=== PATIENT | male | born 1965 | race Caucasian/White ===

== ENCOUNTER → 2016-07-05 | Outpatient (CLI) | payer OTHER ==
[~2016-07-05] MED LIST: CATHETER FLUSH 10 ML SYR IV PRN; DOXY100C2 PO; HYDR-3812 PO; IBUP-2055 PO; IOHEXOL 350 MG/ML 100 ML (OMNIPAQUE 350) VIAL IV ONE; MELA5CAP PO; NS 100 ML (IVPB) BAG IV ONE; OMEP40CA36 PO; PROM50SU11 RC; PROM50TA3 PO
--- NOTE | 2016-07-05 16:07 | Diagnostic Imaging Report ---
PROCEDURE: CT chest, abdomen, and pelvis with contrast. TECHNIQUE: Multiple contiguous axial images were obtained through the chest, abdomen, and pelvis after the administration of intravenous contrast. INDICATION: Lymphadenopathy. CONTRAST: 100 mL of Omnipaque 350 was administered intravenously. COMPARISON: No prior studies are available for comparison. FINDINGS: CT CHEST: There are large bilateral axillary lymph node masses up to 3.4 x 2.5 x 4.9 cm. The largest left axillary lymph node is 2 cm in short axis. There are also mediastinal enlarged lymph nodes up to 1.8 cm in the right paratracheal station and 2.3 cm in the infracarinal station. Mild hilar lymphadenopathy is also present. There are bilateral supraclavicular lymph nodes demonstrating mild enlargement also seen. An extrapulmonary 1.4 cm enlarged node is also noted. The heart size is normal in caliber. The thoracic aorta is normal in caliber. No pericardial or pleural effusion. There is suggestion of dependent atelectasis in the lungs with no suspicious nodule or mass. The osseous structures appear grossly unremarkable. There is also a 1 cm subcutaneous nodule along the lower lateral right chest wall at the level of the dome of the diaphragm, presumably also a pathologic lymph node. CT ABDOMEN AND PELVIS: There is mild to moderate splenomegaly measuring 14.8 x 10.3 x 12.7 cm. Multiple enlarged periaortic and retrocaval lymph nodes up to 1.6 cm in short axis are seen. There is also mild mesenteric lymphadenopathy involving numerous nodes up to 1.5 cm in short axis. The liver, gallbladder, pancreas, and adrenal glands appear unremarkable. The kidneys have symmetric enhancement and contrast excretion. There is no hydronephrosis or focal lesion. The urinary bladder appears unremarkable. In the pelvis, bilateral common iliac minimally prominent subcentimeter lymph nodes are seen. There are bilateral external iliac enlarged lymph nodes measuring 1.5 cm in short axis on the left side and 0.9 cm in short axis on the right side. There are enlarged lymph nodes in the inguinal region measuring up to 1.6 cm on the right and up to 2.2 cm on the left. The osseous structures demonstrate mild degenerative changes in the sacroiliac joints. IMPRESSION: CT CHEST: 1. There is lymphadenopathy in both axilla, mediastinum, aime, and visualized portions of the neck. 2. Subcutaneous 1 cm nodule in the lower right lateral chest wall. CT ABDOMEN AND PELVIS: 1. Periaortic, mesenteric, iliac, and inguinal lymphadenopathy. 2. Splenomegaly. 3. The findings are concerning for lymphoma or other lymphoproliferative disease. Report given to nurse (Akahs) at 4:00 p.m. 07/05/2016/cb Dictated by: Dictated on workstation # [id number]
== END ==
LOC: RAD 13:48
PROVIDERS: ATTEND Nurse Practitioner Family
DX: R59.1 Generalized enlarged lymph nodes (principal); R10.84 Generalized abdominal pain; R11.14 Bilious vomiting; R53.83 Other fatigue; R21 Rash and other nonspecific skin eruption
CPT/HCPCS: 71260; 74177

== ENCOUNTER 2016-07-13 13:39 | Outpatient (RCR) | payer MEDICAID, OTHER ==
[2016-07-13 14:12] LABS: BASOPHILS # (AUTO) 0.1 10^3/uL (0.0-0.1); BASOPHILS % (AUTO) 1 % (0-10); EOSINOPHILS # (AUTO) 0.8 10^3/uL (0.0-0.3); EOSINOPHILS % (AUTO) 8 % (0-10); LYMPHOCYTES # (AUTO) 1.2 X 10^3 (1.0-4.0); LYMPHOCYTES % (AUTO) 12 % (12-44); MEAN CORPUSCULAR HEMOGLOBIN 27 PG (25-34); MEAN CORPUSCULAR HGB CONC 33 G/DL (32-36); MEAN CORPUSCULAR VOLUME 80 FL (80-99); MONOCYTES # (AUTO) 1.3 X 10^3 (0.0-1.0); MONOCYTES % (AUTO) 13 % (0-12); NEUTROPHILS # (AUTO) 6.5 X 10^3 (1.8-7.8); NEUTROPHILS % (AUTO) 66 % (42-75); PLATELET COUNT 250 10^3/uL (130-400); RED BLOOD COUNT 5.11 10^6/uL (4.35-5.85); RED CELL DISTRIBUTION WIDTH 13.8 % (10.0-14.5); WHITE BLOOD COUNT 9.8 10^3/uL (4.3-11.0)
[2016-07-13 14:18] LABS: PEP REPORT SEE PATH REPORT
[2016-07-13 14:42] LABS: ALANINE AMINOTRANSFERASE 28 U/L (0-55); ALBUMIN 3.4 G/DL (3.2-4.5); ANION GAP 9 MMOL/L (5-14); ASPARTATE AMINO TRANSFERASE 19 U/L (5-34); BLOOD UREA NITROGEN 12 MG/DL (7-18); BUN/CREATININE RATIO 14; CALCIUM 8.4 MG/DL (8.5-10.1); CARBON DIOXIDE 28 MMOL/L (21-32); CHLORIDE 101 MMOL/L (98-107); CREATININE SERUM 0.87 MG/DL (0.60-1.30); GFR ESTIMATED > 60; GLUCOSE 93 MG/DL (70-105); LACTATE DEHYDROGENASE 303 U/L (125-220); POTASSIUM 4.2 MMOL/L (3.6-5.0); SODIUM 138 MMOL/L (135-145); TOTAL PROTEIN 6.9 G/DL (6.4-8.2)
[2016-07-13 14:45] LABS: ERYTHROCYTE SEDIMENTATION RATE 4 MM/HR (0-30)
[2016-07-13 15:55] LABS: INR 1.2 (0.8-1.4); PROTHROMBIN TIME PATIENT 15.2 SEC (12.2-14.7)
[2016-07-14 04:37] LABS: LIGHT CHAIN KAPPA SERUM QUANT 125.29 mg/L (3.30-19.40); LIGHT CHAIN LAMBDA SERUM QUANT 99.99 mg/L (5.71-26.30)
[2016-07-15 07:29] LABS: HIV 1/2 INTERP See Footnote; HIV AG AB SCREEN Non-Reactive (Non-Reactive)
[2016-07-15] MEDS ORDERED: DOXY100C2 PO (09:15)
[2016-07-15] MEDS ORDERED: PROM50TA3 PO (09:15)
[2016-07-15] MEDS ORDERED: PROM50SU11 RC (09:15)
[2016-07-15] MEDS ORDERED: IBUP-2055 PO (09:15)
[2016-07-15] MEDS ORDERED: OMEP40CA36 PO (09:15)
[2016-07-15] MEDS ORDERED: MELA5CAP PO (09:15)
[2016-07-15 10:10] LABS: CLIN PATHOLOGY REPORT FOOTNOTE; SERUM PROTEIN ELEC DETAIL L-17-0004069
[2016-07-21] MEDS ORDERED: HYDR-3812 PO (11:55)
== END 2016-10-11 | disposition home or self-care (01) ==
LOC: ONC 13:39
PROVIDERS: ATTEND Internal Medicine Hematology & Oncology
DX: R59.1 Generalized enlarged lymph nodes (principal); R21 Rash and other nonspecific skin eruption; A77.0 Spotted fever due to Rickettsia rickettsii; R16.1 Splenomegaly, not elsewhere classified; D72.821 Monocytosis (symptomatic); Z79.899 Other long term (current) drug therapy
CPT/HCPCS: 36415; 80053; 82232; 83615; 83883; 84155; 84165; 85025; 85610; 85652; 86703; 86860; 86870; 86880; 86900; 86901; 86902; 86906; 86971; 86978; 99214

== ENCOUNTER 2016-07-15 08:54 | Inpatient (IN) | payer OTHER ==
[~2016-07-15] VITALS: Ht 172.7 cm; Wt 78.6 kg
[2016-07-15] MEDS ORDERED: MELA5CAP PO (09:15)
[2016-07-15] MEDS ORDERED: IBUP-2055 PO (09:15)
[2016-07-15] MEDS ORDERED: DOXY100C2 PO (09:15)
[2016-07-15] MEDS ORDERED: PROM50TA3 PO (09:15)
[2016-07-15] MEDS ORDERED: OMEP40CA36 PO (09:15)
[2016-07-15] MEDS ORDERED: PROM50SU11 RC (09:15)
[2016-07-15] MEDS ORDERED: KETOROLAC 30 MG/ML VIAL IVP STA (09:18)
[2016-07-15] MEDS ORDERED: NS IV 1000 ML 1,000 ML IV ONE (09:18)
--- NOTE | 2016-07-15 09:26 | ED General ---
General Chief Complaint: Cough/Cold/Flu Symptoms Stated Complaint: COUGH, ABD SWELLING Nursing Triage Note: AMBULATED TO ROOM 07 WITHOUT DIFFICULTY. COUGH AND FEVER OFF AND ON FOR A WHILE. DX WITH [facility] [place] June. ALSO [facility] AND HAS AN APPT WITH [facility] FOR BX NEXT WEEK. Nursing Sepsis Screen: Possible Sepsis Risk Source of Information: Patient, Family Exam Limitations: No Limitations History of Present Illness Time Seen by Provider: 09:10 Initial Comments Patient and mask for evaluation. Here with report of cough and fever on and off for a couple of weeks. Currently receiving therapy for [place] spotted fever and had one week of doxycycline followed by a week off and is currently back on doxycycline for the last 2 days. He is scheduled for lymph node biopsy tomorrow due to multiple enlarged lymph nodes in the neck and axilla. He is complaining of fever, cough, weakness, pain in his neck anteriorly and posteriorly, headache and not being able to eat because of the lymph node swelling in his neck. Denies denies vomiting but has some nausea. He has not taken his doxycycline this morning. Does have fine lacy rash to the chest and back. Timing/Duration: 1 Week, Getting Worse, Intermittent Severity: Moderate Associated Systoms: Cough, Fever/Chills, Headaches, Loss of Appetite, Nausea/ Vomiting, No Shortness of Air, Weakness Allergies and Home Medications Allergies Coded Allergies: No Known Drug Allergies (Unverified , 07/15/16) Home Medications Doxycycline Hyclate 100 Mg Capsule, 100 MG PO BID, (Reported) Ibuprofen 200 Mg Tablet, 600 MG PO BID, (Reported) Melatonin 5 Mg Capsule, 5 MG PO HS, (Reported) Omeprazole 40 Mg Capsule.dr, 40 MG PO DAILY, (Reported) Promethazine HCl 50 Mg Supp.rect, 50 MG RC, (Reported) Promethazine HCl 50 Mg Tablet, 25 MG PO Q8H PRN for NAUSEA/VOMITING, (Reported) Constitutional: see HPI, chills, fever, weakness EENTM: see HPI, throat pain Respiratory: see HPI, cough, No hemoptysis Cardiovascular: No chest pain, No edema Gastrointestinal: see HPI, abdominal pain (diffuse but worse in the upper quadrants), nausea, No vomiting Genitourinary: no symptoms reported Musculoskeletal: muscle pain, No muscle stiffness Skin: see HPI, No lesions, rash Psychiatric/Neurological: No Symptoms Reported Hematologic/Lymphatic: See HPI, Swollen Glands All Other Systems Reviewed Negative Unless Noted: Yes Past Cuvmyte-Xxkapf-Ywrsdb Hx Patient Social History Alcohol Use: Denies Use Recreational Drug Use: No Smoking Status: Former Smoker Recent Foreign Travel: No Contact w/Someone Who Travel: No Recent Infectious Disease Expo: No Recent Hopitalizations: No Surgeries HX Surgeries: No Respiratory Hx Respiratory Disorders: No Cardiovascular Hx Cardiac Disorders: No Neurological Hx Neurological Disorders: Yes (HILARIO [place] SPOTTED FEVER) Genitourinary Hx Genitourinary Disorders: No Gastrointestinal Hx Gastrointestinal Disorders: No Musculoskeletal Hx Musculoskeletal Disorders: No Endocrine Hx Endocrine Disorders: No HEENT HX ENT Disorders: No Cancer Hx Cancer: Yes (NOT DX WITH CA BUT HAS ENLARGED LYMPH NODES) Psychosocial Hx Psychiatric Problems: No Reviewed Nursing Assessment Reviewed/Agree w Nursing PMH: Yes Family Medical History Significant Family History: No Pertinent Family Hx Physical Exam-Suspected Sepsis Physical Exam Vital Signs Vital Sign - Last 12Hours 07/15/16 07/15/16 09:05 09:34 Temp 99.1 Pulse 113 Resp 16 B/P (MAP) 153/101 Pulse Ox 93 O2 Delivery Nasal Cannula Capillary Refill : Less Than 3 Seconds Blood Pressure Mean: 118 General Appearance: WD/WN, Mild Distress (pain) HEENT: PERRL/EOMI, Pharyngeal Erythema Neck: Supple, Lymphadenopathy (L), Lymphadenopathy (R), Tender Lateral, No Tender Midline Respiratory: Lungs Clear, Normal Breath Sounds Cardiovascular: No Murmur, Tachycardia Gastrointestinal: Soft, Tenderness (left upper quadrant and to lesser extent the rest of the remainder of the abdomen.) Back: Normal Inspection, No CVA Tenderness, No Vertebral Tenderness Extremity: Non Tender, No Calf Tenderness Neurologic/Psychiatric: Alert, Oriented x3 Skin: normal color, warm/dry Focused Exam Lactic Acid Level Laboratory Tests Test 07/15/16 09:20 Lactic Acid Level 1.14 MMOL/L (0.50-2.00) Progress/Results/Core Measures Suspected Sepsis Recent Fever Within 48 Hours: Yes Infection Criteria Present: Suspected New Infection New/Unexplained Altered Menta: No Sepsis Screen: Possible Sepsis Risk Sepsis Diagnosis: SIRS Temperature:99.1 Pulse: 113 Respiratory Rate: 16 Laboratory Tests 07/15/16 09:20: White Blood Count 10.5 Blood Pressure 153 /101 Mean: 118 Laboratory Tests 07/15/16 09:20: Creatinine 0.86, Platelet Count 226, Total Bilirubin 1.5H Results/Orders Lab Results Laboratory Tests Test 07/15/16 09:20 Range/Units White Blood Count 10.5 4.3-11.0 10^3/uL Red Blood Count 4.95 4.35-5.85 10^6/uL Hemoglobin 13.6 13.3-17.7 G/DL Hematocrit 39 L 40-54 % Mean Corpuscular Volume 79 L 80-99 FL Mean Corpuscular Hemoglobin 28 25-34 PG Mean Corpuscular Hemoglobin Concent 35 32-36 G/DL Red Cell Distribution Width 13.5 10.0-14.5 % Platelet Count 226 130-400 10^3/uL Mean Platelet Volume 9.5 7.4-10.4 FL Neutrophils (%) (Auto) 70 42-75 % Lymphocytes (%) (Auto) 13 12-44 % Monocytes (%) (Auto) 12 0-12 % Eosinophils (%) (Auto) 3 0-10 % Basophils (%) (Auto) 1 0-10 % Neutrophils # (Auto) 7.4 1.8-7.8 X 10^3 Lymphocytes # (Auto) 1.3 1.0-4.0 X 10^3 Monocytes # (Auto) 1.3 H 0.0-1.0 X 10^3 Eosinophils # (Auto) 0.4 H 0.0-0.3 10^3/uL Basophils # (Auto) 0.2 H 0.0-0.1 10^3/uL Sodium Level 135 135-145 MMOL/L Potassium Level 4.0 3.6-5.0 MMOL/L Chloride Level 101 98-107 MMOL/L Carbon Dioxide Level 26 21-32 MMOL/L Anion Gap 8 5-14 MMOL/L Blood Urea Nitrogen 13 7-18 MG/DL Creatinine 0.86 0.60-1.30 MG/DL Estimat Glomerular Filtration Rate > 60 BUN/Creatinine Ratio 15 Glucose Level 102 70-105 MG/DL Lactic Acid Level 1.14 0.50-2.00 MMOL/L Calcium Level 8.3 L 8.5-10.1 MG/DL Total Bilirubin 1.5 H 0.1-1.0 MG/DL Aspartate Amino Transf (AST/SGOT) 25 5-34 U/L Alanine Aminotransferase (ALT/SGPT) 30 0-55 U/L Alkaline Phosphatase 199 H 40-136 U/L Total Protein 6.9 6.4-8.2 G/DL Albumin 3.2 3.2-4.5 G/DL My Orders Orders - VLAD JONES MD Cbc With Automated Diff (07/15/16 09:18) Comprehensive Metabolic Panel (07/15/16 09:18) Lactic Acid Analyzer (07/15/16 09:18) Blood Culture (07/15/16 09:18) Sputum Culture (07/15/16 09:18) Chest Pa/Lat (2 View) (07/15/16 09:18) Ct Head Wo (07/15/16 09:18) Saline Lock/Iv-Start (07/15/16 09:18) Ns Iv 1000 Ml (Sodium Chloride 0.9%) (07/15/16 09:18) Ketorolac Injection (Toradol Injection) (07/15/16 09:18) Medications Given in ED Current Medications Medications Dose Ordered Sig/Crow Route Start Time Stop Time Status Last Admin Dose Admin Sodium Chloride 1,000 ml @ 0 mls/hr Q0M ONCE IV 07/15/16 09:18 07/15/16 09:20 DC 07/15/16 09:26 1,000 MLS/HR Vital Signs/I&O Vital Sign - Last 12Hours 07/15/16 07/15/16 09:05 09:34 Temp 99.1 Pulse 113 Resp 16 B/P (MAP) 153/101 Pulse Ox 93 O2 Delivery Nasal Cannula Capillary Refill : Less Than 3 Seconds Blood Pressure Mean: 118 Progress Note : Progress Note Seen and evaluated. IV, labs, normal saline 1 L bolus, chest x-ray 2 view and Toradol 30 mg IV. Anticipate lumbar puncture so we will get CT head. Monitor patient. Diagnostic Imaging Diagonstic Imaging: CT Plain Films/CT/US/NM/MRI: head Comments [facility]IA [facility]. [place] NAME: ANAYELI GRIMES [facility] REC#: [id number] PT STATUS: REG ER : 1965 PHYSICIAN: VLAD JONES MD ADMIT DATE: 07/15/16/ER Draft Date of Exam:07/15/16 CT HEAD WO PROCEDURE: CT head without contrast. TECHNIQUE: Multiple contiguous axial images were obtained through the brain without the use of intravenous contrast. INDICATION: Cough, head pain, [place] fever. I have no priors. FINDINGS: The brain appeared normal. There is no hemorrhage, hydrocephalus, edema, mass, or mass effect. Right maxillary sinus is occluded by heterogeneous material with elements of hyperdensity. This suggests chronic inspissated secretions. There is membrane disease and partial opacification of the floor of the right frontal sinus as well as opacification of a few right-sided ethmoid air cells anteriorly. Calcified nodule in the right ethmoid air cells anteriorly , 10 mm, likely a small osteoma. The left maxillary where visualized clear. Mastoids clear. Middle ear cavities revealed no abnormal opacification. There is trace membrane thickening in the floors of the sphenoid sinuses. IMPRESSION: Normal appearance of the brain. Likely chronic paranasal sinus disease as described with the right maxillary occluded by partly hyperdense material suggestive of chronic inspissated secretions. 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 No devon air-fluid levels. Dictated on workstation # [id number] Dict: 07/15/1644 Trans: 07/15/16 0949 ROGERIO [id number] Interpreted by: LAURA CRUZ Electronically signed by: Mariano Imaging: Xray Plain Films/CT/US/NM/MRI: chest Comments [facility]IA [facility]. [place] NAME: ANAYELI GRIMES [facility] REC#: [id number] PT STATUS: REG ER : 1965 PHYSICIAN: VLAD JONES MD ADMIT DATE: 07/15/16/ER Draft Date of Exam:07/15/16 CHEST PA/LAT (2 VIEW) INDICATION: Cough and fever. PA and lateral chest obtained at 9:56 a.m. Heart and mediastinal silhouette are normal in appearance. There is mild right medial basilar infiltrate. Left lung is grossly clear. There is no pneumothorax or pleural fluid. IMPRESSION: Mild right medial basilar infiltrate. Otherwise negative chest. Suggest followup as clinically warranted. Dictated on workstation # [id number] Dict: 07/15/1647 Trans: 07/15/16 0950 [id number] Interpreted by: JUAN LUIS RAMOS MD Electronically signed by: Departure Departure-Patient Inst. Referrals: [facility] (PCP[facility]Family) Primary Care Physician VLAD JONES MD Jul 15, 2016 09:26
[2016-07-15 09:35] LABS: BASOPHILS # (AUTO) 0.2 10^3/uL (0.0-0.1); BASOPHILS % (AUTO) 1 % (0-10); EOSINOPHILS # (AUTO) 0.4 10^3/uL (0.0-0.3); EOSINOPHILS % (AUTO) 3 % (0-10); LYMPHOCYTES # (AUTO) 1.3 X 10^3 (1.0-4.0); LYMPHOCYTES % (AUTO) 13 % (12-44); MEAN CORPUSCULAR HEMOGLOBIN 28 PG (25-34); MEAN CORPUSCULAR HGB CONC 35 G/DL (32-36); MEAN CORPUSCULAR VOLUME 79 FL (80-99); MEAN PLATELET VOLUME 9.5 FL (7.4-10.4); MONOCYTES # (AUTO) 1.3 X 10^3 (0.0-1.0); MONOCYTES % (AUTO) 12 % (0-12); NEUTROPHILS # (AUTO) 7.4 X 10^3 (1.8-7.8); NEUTROPHILS % (AUTO) 70 % (42-75); PLATELET COUNT 226 10^3/uL (130-400); RED BLOOD COUNT 4.95 10^6/uL (4.35-5.85); RED CELL DISTRIBUTION WIDTH 13.5 % (10.0-14.5); WHITE BLOOD COUNT 10.5 10^3/uL (4.3-11.0)
--- NOTE | 2016-07-15 09:49 | Diagnostic Imaging Report ---
PROCEDURE: CT head without contrast. TECHNIQUE: Multiple contiguous axial images were obtained through the brain without the use of intravenous contrast. INDICATION: Cough, head pain, [place] fever. I have no priors. FINDINGS: The brain appeared normal. There is no hemorrhage, hydrocephalus, edema, mass, or mass effect. Right maxillary sinus is occluded by heterogeneous material with elements of hyperdensity. This suggests chronic inspissated secretions. There is membrane disease and partial opacification of the floor of the right frontal sinus as well as opacification of a few right-sided ethmoid air cells anteriorly. Calcified nodule in the right ethmoid air cells anteriorly , 10 mm, likely a small osteoma. The left maxillary where visualized clear. Mastoids clear. Middle ear cavities revealed no abnormal opacification. There is trace membrane thickening in the floors of the sphenoid sinuses. IMPRESSION: Normal appearance of the brain. Likely chronic paranasal sinus disease as described with the right maxillary occluded by partly hyperdense material suggestive of chronic inspissated secretions. 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 No devon air-fluid levels. Dictated by: Dictated on workstation # [id number]
--- NOTE | 2016-07-15 09:50 | Diagnostic Imaging Report ---
INDICATION: Cough and fever. PA and lateral chest obtained at 9:56 a.m. Heart and mediastinal silhouette are normal in appearance. There is mild right medial basilar infiltrate. Left lung is grossly clear. There is no pneumothorax or pleural fluid. IMPRESSION: Mild right medial basilar infiltrate. Otherwise negative chest. Suggest followup as clinically warranted. Dictated by: Dictated on workstation # [id number]
[2016-07-15 10:05] LABS: ALANINE AMINOTRANSFERASE 30 U/L (0-55); ALBUMIN 3.2 G/DL (3.2-4.5); ANION GAP 8 MMOL/L (5-14); ASPARTATE AMINO TRANSFERASE 25 U/L (5-34); BILIRUBIN,TOTAL 1.5 MG/DL (0.1-1.0); BLOOD UREA NITROGEN 13 MG/DL (7-18); BUN/CREATININE RATIO 15; CALCIUM 8.3 MG/DL (8.5-10.1); CARBON DIOXIDE 26 MMOL/L (21-32); CHLORIDE 101 MMOL/L (98-107); CREATININE SERUM 0.86 MG/DL (0.60-1.30); GFR ESTIMATED > 60; GLUCOSE 102 MG/DL (70-105); SODIUM 135 MMOL/L (135-145); TOTAL PROTEIN 6.9 G/DL (6.4-8.2)
[2016-07-15] MEDS ORDERED: ONDANSETRON 4 MG/2 ML (SDV) Z0FRAN IVP ONE (11:15)
[2016-07-15 12:05] LABS: APPEARANCE,CSF CLEAR; COLOR,CSF COLORLESS; WHITE BLOOD CELL,CSF 1 CELLS (0-5)
[2016-07-15 12:23] LABS: CSF GLUCOSE 51 MG/DL (50-80); CSF TOTAL PROTEIN 26 MG/DL (15-40)
--- NOTE | 2016-07-15 12:28 | Anesthesia-Procedure Note ---
Procedure Start/Stop Time Date of Procedure: Jul 15, 2016 Start Time: 11:23 Stop Time: 11:42 Procedures/Interventions Discussed Risk,Benefits: Yes Patient Consents: Yes Position: Left (lateral) Sterile Technique: Yes Opening Pressure: 16mmHg Fluid Color: clear Spinal Needle Used: Other (22g Quinke 3 1/2 inch) Procedure Notes After risk benefits were discussed and informed consent was obtained, patient was placed in a left lateral position. Back was prepped with betadine and the L4 -L5 interspace was localized using 1%lidocaine. A 22g Quinke was inserted with return of clear CSF. Opening pressure was 16mmHg and a specimens were obtained. Needle was removed and bandaid applied. Patient tolerated well. OSVALDO BRIGHT CRNA Jul 15, 2016 12:28
[2016-07-15] MEDS: cefTRIAXone INJECTION 1,000 MG in NS (IVPB) 50 ML IV ONE ×2 (13:02→14:19)
[2016-07-15 14:33] VITALS: BP 149/87
[2016-07-15] MEDS ORDERED: FLU TRIvalent (5 YOA+) 2016-17 (AFLURIA) 0.5 ML IM ONE (15:15)
[2016-07-15] MEDS: DOXYCYCLINE 100 MG/NS 100 ML IVPB IV SCH ×2 (15:17)
[2016-07-15] MEDS: NS IV 1000 ML 1,000 ML IV SCH (15:17)
[2016-07-15] MEDS: KETOROLAC 30 MG/ML VIAL IV PRN (15:55)
[2016-07-15 16:11] LABS: RED BLOOD COUNT 5.02 10^6/uL (4.35-5.85); RETICULOCYTE % 1.17 % (0.50-2.40)
[2016-07-15 16:45] VITALS: BP 141/83
--- NOTE | 2016-07-15 17:09 | Consultation ---
History of Present Illness History of Present Illness Patient Consulted On(wiliam/time) 07/15/16 17:04 Date of Admission History of Present Illness Recent consult requested by Dr. Powers for lymph node biopsy. Patient is a 51- year-old male who has had approximately 10-20 pound weight loss over the last 6 months. He's been having a rash and screws most and night sweats since . He's being diagnosed and treated for [place] spotted fever. Patient has had lymph nodes that it continued increase in size. There continued increase in size and causes some discomfort. Patient was seen in the clinic recently. Patient came into the ER today due to SOB, some difficulty swallowing and dehydration. Fever continues. Allergies and Home Medications Allergies Coded Allergies: No Known Drug Allergies (Unverified , 07/15/16) Home Medications Doxycycline Hyclate 100 Mg Capsule, 100 MG PO BID, (Reported) FILLED 07/13/16 #28 FOR 1 14 DAY THERAPY Ibuprofen 200 Mg Tablet, 600 MG PO BID, (Reported) TAKES 3 (200 MG) TABLETS Melatonin 5 Mg Capsule, 10 MG PO HS, (Reported) TAKES 2 (5 MG) TABLETS Omeprazole 40 Mg Capsule.dr, 40 MG PO DAILY, (Reported) Promethazine HCl 50 Mg Tablet, 25 MG PO Q8H PRN for NAUSEA/VOMITING, (Reported) Past Iygtici-Qjyzwa-Idmzfk Hx Patient Social History Alcohol Use: Occasionally Uses Recreational Drug Use: No Smoking Status: Former Smoker Recent Foreign Travel: No Contact w/Someone Who Travel: No Recent Infectious Disease Expo: No Recent Hopitalizations: No Physical Abuse Screen: No Sexual Abuse: No Seasonal Allergies Seasonal Allergies: Yes Surgeries HX Surgeries: No Respiratory Hx Respiratory Disorders: No Cardiovascular Hx Cardiac Disorders: No Neurological Hx Neurological Disorders: Yes ([place] SPOTTED FEVER) Reproductive System Sexually Transmitted Disease: No HIV/AIDS: No Genitourinary Hx Genitourinary Disorders: No Gastrointestinal Hx Gastrointestinal Disorders: No Musculoskeletal Hx Musculoskeletal Disorders: No Endocrine Hx Endocrine Disorders: No HEENT HX ENT Disorders: No Cancer Hx Cancer: Yes (NOT DX WITH CA BUT HAS ENLARGED LYMPH NODES) Psychosocial Hx Psychiatric Problems: No Reviewed Nursing Assessment Reviewed/Agree w Nursing PMH: Yes Family Medical History Significant Family History: No Pertinent Family Hx Family Medial History: Diabetes mellitus G8 SISTER FHx: heart failure HEART D Headache disorder 19 MOTHER (TRIPLE BYPASS, STROKE) Hypertension 19 MOTHER Review of Systems-General Constitutional: chills, fever, weakness, weight loss EENTM: throat pain Respiratory: short of breath Cardiovascular: no symptoms reported Gastrointestinal: no symptoms reported Genitourinary: no symptoms reported Musculoskeletal: joint pain Skin: no symptoms reported Physical Exam-General Problems Physical Exam Vital Signs Vital Sign - Last 12Hours 07/15/16 07/15/16 09:05 09:34 Temp 99.1 Pulse 113 Resp 16 B/P (MAP) 153/101 Pulse Ox 93 O2 Delivery Nasal Cannula Capillary Refill : Less Than 3 Seconds General Appearance: mild distress HEENT: other (Dry mouth. ) Neck: normal inspection, lymphadenopathy (R), lymphadenopathy (L) Respiratory: no respiratory distress, no accessory muscle use Cardiovascular: tachycardia Gastrointestinal: soft, tenderness (mild tenderness with palpation. ) Extremities: no pedal edema, no calf tenderness Neurologic/Psychiatric: alert, oriented x 3 Skin: warm/dry Data Review Labs Laboratory Tests Test 07/15/16 09:20 07/15/16 11:42 Range/Units White Blood Count 10.5 4.3-11.0 10^3/uL Red Blood Count 5.02 4.35-5.85 10^6/uL Hemoglobin 13.6 13.3-17.7 G/DL Hematocrit 39 L 40-54 % Mean Corpuscular Volume 79 L 80-99 FL Mean Corpuscular Hemoglobin 28 25-34 PG Mean Corpuscular Hemoglobin Concent 35 32-36 G/DL Red Cell Distribution Width 13.5 10.0-14.5 % Platelet Count 226 130-400 10^3/uL Mean Platelet Volume 9.5 7.4-10.4 FL Neutrophils (%) (Auto) 70 42-75 % Lymphocytes (%) (Auto) 13 12-44 % Monocytes (%) (Auto) 12 0-12 % Eosinophils (%) (Auto) 3 0-10 % Basophils (%) (Auto) 1 0-10 % Neutrophils # (Auto) 7.4 1.8-7.8 X 10^3 Lymphocytes # (Auto) 1.3 1.0-4.0 X 10^3 Monocytes # (Auto) 1.3 H 0.0-1.0 X 10^3 Eosinophils # (Auto) 0.4 H 0.0-0.3 10^3/uL Basophils # (Auto) 0.2 H 0.0-0.1 10^3/uL Absolute Reticulocyte Count 59 24-90 10e9/L Percent Reticulocyte Count 1.17 0.50-2.40 % Sodium Level 135 135-145 MMOL/L Potassium Level 4.0 3.6-5.0 MMOL/L Chloride Level 101 98-107 MMOL/L Carbon Dioxide Level 26 21-32 MMOL/L Anion Gap 8 5-14 MMOL/L Blood Urea Nitrogen 13 7-18 MG/DL Creatinine 0.86 0.60-1.30 MG/DL Estimat Glomerular Filtration Rate > 60 BUN/Creatinine Ratio 15 Glucose Level 102 70-105 MG/DL Lactic Acid Level 1.14 0.50-2.00 MMOL/L Calcium Level 8.3 L 8.5-10.1 MG/DL Total Bilirubin 1.5 H 0.1-1.0 MG/DL Aspartate Amino Transf (AST/SGOT) 25 5-34 U/L Alanine Aminotransferase (ALT/SGPT) 30 0-55 U/L Alkaline Phosphatase 199 H 40-136 U/L Lactate Dehydrogenase 373 H 125-220 U/L Total Protein 6.9 6.4-8.2 G/DL Albumin 3.2 3.2-4.5 G/DL CSF Tube Number 4 CSF Appearance CLEAR CSF Color COLORLESS CSF WBC 1 0-5 CELLS CSF RBC 1 H 0-0 CELLS CSF Lymphocytes % CSF Mononuclear WBCs % CSF Polynuclear WBCs % CSF Glucose 51 50-80 MG/DL CSF Total Protein 26 15-40 MG/DL Bad table Radiology NAME: ANAYELI GR[facility] REC#: [id number] PHYSICIAN: VLAD JONES MD CC: JUAN LUIS RAMOS MD; VLAD JONES MD Page 1 of 1 RADIOLOGY REPORT VIA [place], [place] CC: JUAN LUIS RAMOS MD; VLAD JONES MD Page 1 of 1 RADIOLOGY REPORT NAME: ANAYELI [facility]ES [facility] REC#: [id number] PT STATUS: REG ER : 1965 PHYSICIAN: VLAD JONES MD ADMIT DATE: 07/15/16/ER Signed Date of Exam: 07/15/16 CHEST PA/LAT (2 VIEW) INDICATION: Cough and fever. PA and lateral chest obtained at 9:56 a.m. Heart and mediastinal silhouette are normal in appearance. There is mild right medial basilar infiltrate. Left lung is grossly clear. There is no pneumothorax or pleural fluid. IMPRESSION: Mild right medial basilar infiltrate. Otherwise negative chest. Suggest followup as clinically warranted. Dictated by: Dictated on workstation # [id number] Dict: 07/15/16 0947 Trans: 07/15/16 1140 [id number] Interpreted by: JUAN LUIS RAMSO MD Electronically signed by:JUAN LUIS RAMOS MD 07/15/16 1140 NAME: ANAYELI [facility] REC#: [id number] PHYSICIAN: VLAD JONES MD CC: LAURA CRUZ; VLAD JONES MD Page 2 of 2 RADIOLOGY REPORT VIA [place], [place] CC: LAURA CRUZ; VLAD JONES MD Page 1 of 1 RADIOLOGY REPORT NAME: ANAYELI GRIMES [facility] REC#: [id number] PT STATUS: REG ER : 1965 PHYSICIAN: LVAD JONES MD ADMIT DATE: 07/15/16/ER Signed Date of Exam: 07/15/16 CT HEAD WO PROCEDURE: CT head without contrast. TECHNIQUE: Multiple contiguous axial images were obtained through the brain without the use of intravenous contrast. INDICATION: Cough, head pain, [place] fever. I have no priors. FINDINGS: The brain appeared normal. There is no hemorrhage, hydrocephalus, edema, mass, or mass effect. Right maxillary sinus is occluded by heterogeneous material with elements of hyperdensity. This suggests chronic inspissated secretions. There is membrane disease and partial opacification of the floor of the right frontal sinus as well as opacification of a few right-sided ethmoid air cells anteriorly. Calcified nodule in the right ethmoid air cells anteriorly , 10 mm, likely a small osteoma. The left maxillary where visualized clear. Mastoids clear. Middle ear cavities revealed no abnormal opacification. There is trace membrane thickening in the floors of the sphenoid sinuses. IMPRESSION: Normal appearance of the brain. Likely chronic paranasal sinus disease as described with the right maxillary occluded by partly hyperdense material suggestive of chronic inspissated secretions. 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 No devon air-fluid levels. Dictated by: Dictated on workstation # [id number] Dict: 07/15/16 0944 Trans: 07/15/16 1050 ROGERIO [id number] Interpreted by: LAURA CRUZ Electronically signed by:LAURA CRUZ 07/15/16 1050 Assessment/Plan Assessment/Plan Assessment/Plan Lymphadenopathy, generalized RMSF ([place] spotted fever) Possible Sepsis. He is scheduled for lymph node biopsy tomorrow due to multiple enlarged lymph nodes in the neck and axilla. We will continue with scheduled procedure. Patient to be NPO at midnight. Dandre- Patient admitted with pneumonia, lymphadenopathy generalized, RMSF Patient continues not to feel well. Had rough night last night and today. Patient cough and fever. Admitted for continued care. Patient laying in bed slightly labored breathing tachycardia enlarged lympnodes neck b/l, axilla b/l, inguinal b/l alert and oriented normal mood assessment as above discussed risks and benefits of excisional biopsy of node right axilla, neck, or groin he understands risk and benefits and wishes to proceed. npo after midnight. Clinical Quality Measures DVT/VTE Risk/Contraindication: Risk Factor Score Per Nursin RFS Level Per Nursing on Admit: 1=Low/No VTE PPX JONATHAN WHITING APRN Jul 15, 2016 5:09 pm MARIELY HENSLEY DO Jul 15, 2016 7:31 pm
[2016-07-15] MEDS ORDERED: RT-ALBUTEROL SULF 2.5 MG/3 ML PRE-MIX VIAL IH PRN (17:15)
--- NOTE | 2016-07-15 17:39 | Consultation ---
History of Present Illness History of Present Illness Patient Consulted On(joanne/time) 07/15/16 17:39 Date of Admission 07/15/16 History of Present Illness Gus Colon is a 51-year-old male patient of [facility] who was recently referred to me for evaluation of generalized lymphadenopathy and splenomegaly. Patient was bitten by tick 8 months ago and took panel done in June shows that he has positive IgG antibody for [place] spotted fever. He has been treated with one week of doxycycline. Patient reports having fatigue may release and some weight loss that has been occurring over the last several months. He was noted rapidly enlarging lymph nodes in his neck groin and under both armpits over the last 3-4 weeks. He has had recurrent fevers up to 102 as well as recurrent night sweats. He has a nonproductive cough. He denies dysuria. He has noted a generalized rash that comes and goes. CT scan of the chest abdomen and pelvis from 07/05/16 shows generalized lymphadenopathy in both axilla, mediastinum, aime and visualized portions of the neck. Subcutaneous 1 cm nodule in the right lateral chest wall also was seen. Abdominal CT scan shows periaortic, mesenteric, iliac and inguinal adenopathy as well as splenomegaly. Patient's LDH is elevated at 303 while his ESR is only 4. Patient came to ER because he had troubles sleeping secondary to recurrent spasms of coughing associated with headache and recurrent fevers. His night sweats also persists. He is scheduled have a lymph node biopsy tomorrow. Chest x-ray done in the emergency room shows a mild right medial basilar infiltrate, left lung is clear. He is currently receiving IV ceftriaxone and doxycycline. Lumbar puncture was done in the emergency room because patient headache and was essentially unremarkable. Allergies and Home Medications Allergies Coded Allergies: No Known Drug Allergies (Unverified , 07/15/16) Home Medications Doxycycline Hyclate 100 Mg Capsule, 100 MG PO BID, (Reported) FILLED 07/13/16 #28 FOR 1 14 DAY THERAPY Ibuprofen 200 Mg Tablet, 600 MG PO BID, (Reported) TAKES 3 (200 MG) TABLETS Melatonin 5 Mg Capsule, 10 MG PO HS, (Reported) TAKES 2 (5 MG) TABLETS Omeprazole 40 Mg Capsule.dr, 40 MG PO DAILY, (Reported) Promethazine HCl 50 Mg Tablet, 25 MG PO Q8H PRN for NAUSEA/VOMITING, (Reported) Past Svtgulg-Ydqiml-Yeliqe Hx Patient Social History Alcohol Use: Occasionally Uses Recreational Drug Use: No Smoking Status: Former Smoker Recent Foreign Travel: No Contact w/Someone Who Travel: No Recent Infectious Disease Expo: No Recent Hopitalizations: No Physical Abuse Screen: No Sexual Abuse: No Seasonal Allergies Seasonal Allergies: Yes Surgeries HX Surgeries: No Respiratory Hx Respiratory Disorders: No Cardiovascular Hx Cardiac Disorders: No Neurological Hx Neurological Disorders: Yes (HILAR[place] SPOTTED FEVER) Reproductive System Sexually Transmitted Disease: No HIV/AIDS: No Genitourinary Hx Genitourinary Disorders: No Gastrointestinal Hx Gastrointestinal Disorders: No Musculoskeletal Hx Musculoskeletal Disorders: No Endocrine Hx Endocrine Disorders: No HEENT HX ENT Disorders: No Cancer Hx Cancer: Yes (NOT DX WITH CA BUT HAS ENLARGED LYMPH NODES) Psychosocial Hx Psychiatric Problems: No Reviewed Nursing Assessment Reviewed/Agree w Nursing PMH: Yes Family Medical History Significant Family History: No Pertinent Family Hx Family Medial History: Diabetes mellitus G8 SISTER FHx: heart failure HEART D Headache disorder 19 MOTHER (TRIPLE BYPASS, STROKE) Hypertension 19 MOTHER Review of Systems-General Constitutional: see HPI, diaphoresis, fever, malaise, weakness Respiratory: see HPI, cough, short of breath Musculoskeletal: see HPI Physical Exam-General Problems Physical Exam Vital Signs Vital Sign - Last 12Hours 07/15/16 07/15/16 07/15/16 09:05 09:34 16:45 Temp 99.1 Pulse 113 Resp 16 B/P (MAP) 153/101 Pulse Ox 93 O2 Delivery Nasal Cannula O2 Flow Rate 2.00 Capillary Refill : Less Than 3 Seconds General Appearance: WD/WN, no apparent distress HEENT: PERRL/EOMI, other (enlarged tonsils left more than right) Neck: lymphadenopathy (R), lymphadenopathy (L) Respiratory: decreased breath sounds Cardiovascular: regular rate, rhythm, no edema, no JVD Gastrointestinal: normal bowel sounds, non tender, soft Rectal: deferred Back: normal inspection, no CVA tenderness, no vertebral tenderness Extremities: non-tender, normal inspection, no pedal edema, no calf tenderness Neurologic/Psychiatric: rvda master certified rv technician II-XII nml as tested, no motor/sensory deficits, alert, normal mood/affect, oriented x 3 Lymphatic: axilla node tender (R), axilla node tender (L), inguinal node tender (R), inguinal node tender (L), other (extensive bilateral cervical, bilateral axillary, bilateral inguinal, and supraclavicular bulky adenopathy.) Comments Laboratory Tests 07/15/16 09:20 Laboratory Tests 07/15/16 09:20: Hematocrit 39L, Mean Corpuscular Volume 79L, Monocytes # (Auto) 1.3H, Eosinophils # (Auto) 0.4H, Basophils # (Auto) 0.2H, Calcium Level 8.3L, Total Bilirubin 1.5H, Alkaline Phosphatase 199H, Lactate Dehydrogenase 373H 07/15/16 11:42: CSF RBC 1H RADIOLOGY REVIEW: Chest x-ray PA and lateral done 07/15/16:IMPRESSION: Mild right medial basilar infiltrate. Otherwise negative chest. Suggest followup as clinically warranted. Assessment/Plan Assessment/Plan Admission Diagnosis/Plan 1. Right lower lobe infiltrate/early pneumonia Continue IV ceftriaxone; follow-up sputum culture and sensitivity 2. Headache, Fever, night sweats, generalized lymphadenopathy likely arising from lymphoproliferative disorder. a. Patient is awaiting excisional lymph node biopsy for tissue diagnosis b. Lumbar puncture done in the emergency room. CSF cytology is pending; CSF cell count showing only 1 WBC; CSF chemistries unremarkable. 3. History of [place] Spotted fever--receiving IV doxycycline; patient has a positive IgG titer but IgM titer is negative indicating his infection is remote. 4. History of intermittent generalized maculopapular rash 5. Elevated LDH, beta 2 microglobulin, positive JOANNE, polyclonal gammopathy. All likely related to his lymphoproliferative disorder. Clinical Quality Measures DVT/VTE Risk/Contraindication: Risk Factor Score Per Nursin RFS Level Per Nursing on Admit: 1=Low/No VTE PPX KYLE SUAREZ MD Jul 15, 2016 17:39
[2016-07-15] MEDS: RT-ALBUTEROL SULF 2.5 MG/3 ML PRE-MIX VIAL IH SCH (18:54)
[2016-07-15 19:30] VITALS: BP 138/75
[2016-07-16] VITALS: BP 134/89
[2016-07-16 04:00] VITALS: BP 148/85
[2016-07-16 04:39] LABS: BASOPHILS # (AUTO) 0.2 10^3/uL (0.0-0.1); BASOPHILS % (AUTO) 2 % (0-10); EOSINOPHILS # (AUTO) 0.3 10^3/uL (0.0-0.3); EOSINOPHILS % (AUTO) 4 % (0-10); LYMPHOCYTES # (AUTO) 1.4 X 10^3 (1.0-4.0); LYMPHOCYTES % (AUTO) 17 % (12-44); MEAN CORPUSCULAR HEMOGLOBIN 27 PG (25-34); MEAN CORPUSCULAR HGB CONC 34 G/DL (32-36); MEAN CORPUSCULAR VOLUME 80 FL (80-99); MEAN PLATELET VOLUME 9.5 FL (7.4-10.4); MONOCYTES % (AUTO) 12 % (0-12); NEUTROPHILS # (AUTO) 5.6 X 10^3 (1.8-7.8); NEUTROPHILS % (AUTO) 66 % (42-75); PLATELET COUNT 232 10^3/uL (130-400); RED BLOOD COUNT 4.84 10^6/uL (4.35-5.85); RED CELL DISTRIBUTION WIDTH 13.5 % (10.0-14.5); WHITE BLOOD COUNT 8.5 10^3/uL (4.3-11.0)
[2016-07-16] MEDS: DOXYCYCLINE 100 MG/NS 100 ML IVPB IV SCH ×4 (05:03→17:18)
[2016-07-16] MEDS: NS IV 1000 ML 1,000 ML IV SCH ×2 (05:03→17:25)
[2016-07-16 05:19] LABS: ALANINE AMINOTRANSFERASE 28 U/L (0-55); ANION GAP 8 MMOL/L (5-14); ASPARTATE AMINO TRANSFERASE 26 U/L (5-34); BILIRUBIN,TOTAL 1.5 MG/DL (0.1-1.0); BLOOD UREA NITROGEN 14 MG/DL (7-18); BUN/CREATININE RATIO 14; CALCIUM 7.8 MG/DL (8.5-10.1); CARBON DIOXIDE 25 MMOL/L (21-32); CHLORIDE 103 MMOL/L (98-107); GFR ESTIMATED > 60; GLUCOSE 103 MG/DL (70-105); POTASSIUM 4.3 MMOL/L (3.6-5.0); SODIUM 136 MMOL/L (135-145); TOTAL PROTEIN 6.7 G/DL (6.4-8.2)
[2016-07-16] MEDS: RT-ALBUTEROL SULF 2.5 MG/3 ML PRE-MIX VIAL IH SCH ×4 (07:07→19:42)
[2016-07-16] MEDS: KETOROLAC 30 MG/ML VIAL IV PRN ×3 (09:27→21:24)
[2016-07-16] MEDS: ONDANSETRON 4 MG/2 ML (SDV) Z0FRAN IV PRN ×2 (09:27→15:56)
[2016-07-16 11:13] VITALS: BP 140/88
[2016-07-16 12:00] VITALS: BP 133/77
--- NOTE | 2016-07-16 12:37 | Progress Note ---
Subjective Subjective/Events-last exam No new complaints. Some fever. NPO at this time. Awaiting biopsy. Family at bedside. Objective Exam Vital Signs Date Time Temp Pulse Resp B/P (MAP) Pulse Ox O2 Delivery O2 Flow Rate FiO2 07/16/16 11:13 99.0 100 22 140/88 95 Nasal Cannula 2.00 07/16/16 10:29 95 2.00 07/16/16 07:07 92 2.00 07/16/16 04:00 100.2 99 22 148/85 94 Nasal Cannula 2.00 07/16/16 00:00 100.5 98 20 134/89 95 Nasal Cannula 2.00 07/15/16 21:00 Nasal Cannula 2.00 07/15/16 19:30 99.3 99 20 138/75 95 Nasal Cannula 2.00 07/15/16 18:54 94 2.00 07/15/16 16:45 100.1 112 19 141/83 96 Nasal Cannula 2.00 07/15/16 16:12 86 07/15/16 16:12 86 07/15/16 14:33 100.0 103 16 149/87 94 Room Air 07/15/16 14:21 98.9 99 16 98 I & O 07/16/16 07:00 Intake Total 2850 ml Output Total 375 ml Balance 2475 ml Capillary Refill : Less Than 3 Seconds General Appearance: WD/WN HEENT: PERRL/EOMI Neck: Supple, Lymphadenopathy (L), Lymphadenopathy (R), Tender Lateral, No Tender Midline Respiratory: Lungs Clear, Normal Breath Sounds Cardiovascular: Tachycardia Gastrointestinal: normal bowel sounds, non tender, soft Extremity: Non Tender, No Calf Tenderness Neurologic/Psychiatric: Alert, Oriented x3 Skin: Warm/Dry Lymphatic: Other (cervical, axillary and inguinal b/l nodes) Results Lab Laboratory Tests 07/16/16 04:22: White Blood Count 8.5, Red Blood Count 4.84, Hemoglobin 13.2L, Hematocrit 39L, Mean Corpuscular Volume 80, Mean Corpuscular Hemoglobin 27, Mean Corpuscular Hemoglobin Concent 34, Red Cell Distribution Width 13.5, Platelet Count 232, Mean Platelet Volume 9.5, Neutrophils (%) (Auto) 66, Lymphocytes (%) (Auto) 17, Monocytes (%) (Auto) 12, Eosinophils (%) (Auto) 4, Basophils (%) (Auto) 2, Neutrophils # (Auto) 5.6, Lymphocytes # (Auto) 1.4, Monocytes # (Auto) 1.0, Eosinophils # (Auto) 0.3, Basophils # (Auto) 0.2H, Sodium Level 136, Potassium Level 4.3, Chloride Level 103, Carbon Dioxide Level 25, Anion Gap 8, Blood Urea Nitrogen 14, Creatinine 1.00, Estimat Glomerular Filtration Rate > 60, BUN/ Creatinine Ratio 14, Glucose Level 103, Calcium Level 7.8L, Total Bilirubin 1.5H , Aspartate Amino Transf (AST/SGOT) 26, Alanine Aminotransferase (ALT/SGPT) 28, Alkaline Phosphatase 194H, Total Protein 6.7, Albumin 3.0L Microbiology 07/15/16 Gram Stain - Final, Resulted 07/15/16 CSF Culture - Preliminary, Resulted No growth Assessment/Plan Assessment/Plan Assessment/Plan pneumonia, rmsf, lymphadenopathy discussed risks and benefits of excisional lymph node biopsy we discussed taking from right neck and right axilla he understands risks and benefits and wishes to proceed. to or today Clinical Quality Measures DVT/VTE Risk/Contraindication: Risk Factor Score Per Nursin RFS Level Per Nursing on Admit: 1=Low/No VTE PPX MARIELY HENSLEY DO Jul 16, 2016 12:37 pm
[2016-07-16] MEDS ORDERED: BUPIVACAINE 0.5% 30 ML (SENSORCAINE) VIAL ONE (12:55)
[2016-07-16] MEDS ORDERED: LIDOCAINE 1% INJ 20 ML (XYLOCAINE) VIAL ONE (12:56)
[2016-07-16] MEDS ORDERED: MIDAZOLAM 2 MG/2 ML (VERSED) VIAL ONE (13:08)
[2016-07-16] MEDS ORDERED: fentaNYL INJECTION 100 MCG/2 ML AMP ONE (13:08)
--- NOTE | 2016-07-16 13:46 | Progress Note (SOAP) ---
Subjective Subjective/Events-last exam Continues to report weakness, fever, drenching night sweats and headache. Objective Exam Vital Signs Date Time Temp Pulse Resp B/P (MAP) Pulse Ox O2 Delivery O2 Flow Rate FiO2 07/16/16 12:00 98.8 99 18 133/77 96 Nasal Cannula 2.00 07/16/16 11:13 99.0 100 22 140/88 95 Nasal Cannula 2.00 07/16/16 10:29 95 2.00 07/16/16 07:07 92 2.00 07/16/16 04:00 100.2 99 22 148/85 94 Nasal Cannula 2.00 07/16/16 00:00 100.5 98 20 134/89 95 Nasal Cannula 2.00 07/15/16 21:00 Nasal Cannula 2.00 07/15/16 19:30 99.3 99 20 138/75 95 Nasal Cannula 2.00 07/15/16 18:54 94 2.00 07/15/16 16:45 100.1 112 19 141/83 96 Nasal Cannula 2.00 07/15/16 16:12 86 07/15/16 16:12 86 07/15/16 14:33 100.0 103 16 149/87 94 Room Air 07/15/16 14:21 98.9 99 16 98 I & O 07/16/16 07:00 Intake Total 2850 ml Output Total 375 ml Balance 2475 ml Capillary Refill : Less Than 3 Seconds General Appearance: Chronically ill HEENT: PERRL/EOMI Neck: Full Range of Motion, Normal Inspection, Non Tender, Supple Respiratory: Lungs Clear Cardiovascular: Regular Rate, Rhythm Gastrointestinal: normal bowel sounds, non tender, soft Extremity: Normal Capillary Refill, Normal Inspection, Non Tender, No Pedal Edema Neurologic/Psychiatric: Alert, Oriented x3, No Motor/Sensory Deficits Lymphatic: Axilla Node Tender (L), Axilla Node Tender (R), Inguinal Node Tender (R), Other (bilateral cervical, axillary, inguinal, bulky adenopathy) Results Lab Laboratory Tests 07/15/16 09:20 07/16/16 04:22 Laboratory Tests 07/16/16 04:22: White Blood Count 8.5, Red Blood Count 4.84, Hemoglobin 13.2L, Hematocrit 39L, Mean Corpuscular Volume 80, Mean Corpuscular Hemoglobin 27, Mean Corpuscular Hemoglobin Concent 34, Red Cell Distribution Width 13.5, Platelet Count 232, Mean Platelet Volume 9.5, Neutrophils (%) (Auto) 66, Lymphocytes (%) (Auto) 17, Monocytes (%) (Auto) 12, Eosinophils (%) (Auto) 4, Basophils (%) (Auto) 2, Neutrophils # (Auto) 5.6, Lymphocytes # (Auto) 1.4, Monocytes # (Auto) 1.0, Eosinophils # (Auto) 0.3, Basophils # (Auto) 0.2H, Sodium Level 136, Potassium Level 4.3, Chloride Level 103, Carbon Dioxide Level 25, Anion Gap 8, Blood Urea Nitrogen 14, Creatinine 1.00, Estimat Glomerular Filtration Rate > 60, BUN/ Creatinine Ratio 14, Glucose Level 103, Calcium Level 7.8L, Total Bilirubin 1.5H , Aspartate Amino Transf (AST/SGOT) 26, Alanine Aminotransferase (ALT/SGPT) 28, Alkaline Phosphatase 194H, Total Protein 6.7, Albumin 3.0L Microbiology 07/15/16 Gram Stain - Final, Resulted 07/15/16 CSF Culture - Preliminary, Resulted No growth Assessment/Plan Assessment/Plan Assess & Plan/Chief Complaint 1. Right lower lobe infiltrate/early pneumonia Continue IV ceftriaxone; follow-up sputum culture and sensitivity 2. Headache, Fever, night sweats, generalized lymphadenopathy likely arising from lymphoproliferative disorder. a. Patient is awaiting excisional lymph node biopsy for tissue diagnosis b. Lumbar puncture done in the emergency room. CSF cytology is pending; CSF cell count showing only 1 WBC; CSF chemistries unremarkable. 3. History of [place] Spotted fever--receiving IV doxycycline; patient has a positive IgG titer but IgM titer is negative indicating his infection is remote. 4. History of intermittent generalized maculopapular rash 5. Elevated LDH, beta 2 microglobulin, positive JOANNE, polyclonal gammopathy. All likely related to his lymphoproliferative disorder. Clinical Quality Measures DVT/VTE Risk/Contraindication: Risk Factor Score Per Nursin RFS Level Per Nursing on Admit: 1=Low/No VTE PPX KYLE SUAREZ MD Jul 16, 2016 13:46
[2016-07-16] MEDS ORDERED: ceFAZolin 2 GM/50 ML NS 50 ML IV ONE (14:00)
[2016-07-16] MEDS ORDERED: LACTATED RINGERS 2,000 ML IV ONE (14:12)
[2016-07-16] MEDS ORDERED: SEVOFLURANE (ULTANE) 15 ML INHAL SOLN ONE (14:12)
[2016-07-16] MEDS ORDERED: ONDANSETRON 4 MG/2 ML (SDV) Z0FRAN ONE ×2 (14:12→14:20)
[2016-07-16] MEDS ORDERED: LIDOCAINE PF 2% 10 ML (XYLOCAINE) AMP ONE (14:12)
[2016-07-16] MEDS ORDERED: DEXAMETHASONE PF 10 MG/ML (DECADRON) VIAL ONE (14:12)
[2016-07-16] MEDS ORDERED: proPOfol 200 MG/20 ML (DIPRIVAN) VIAL IV ONE (14:12)
[2016-07-16] MEDS ORDERED: morphine INJ 10 MG/ML 1ML (SYR OR VIAL) ONE (14:20)
[2016-07-16] MEDS ORDERED: ceFAZolin 1,000 MG (ANCEF) VIAL ONE (14:21)
[2016-07-16] MEDS ORDERED: fentaNYL INJECTION 100 MCG/2 ML AMP IV PRN (14:30)
[2016-07-16] MEDS ORDERED: ONDANSETRON 4 MG/2 ML (SDV) Z0FRAN IV ONE (14:30)
[2016-07-16] MEDS ORDERED: morphine INJ 10 MG/ML 1ML (SYR OR VIAL) IV PRN (14:30)
--- NOTE | 2016-07-16 14:33 | Progress Note-Post Operative ---
Post-Operative Progess Note Surgeon (s)/Apparatus Engineering Technologist (s) Surgeon MARIELY HENSLEY DO Apparatus Engineering Technologist: Trevon Nwagwu Pre-Operative Diagnosis lymphadenopathy Post-Operative Diagnosis same Post-Op Procedure Note Date of Procedure: Jul 16, 2016 Name of Procedure Performed: excision right neck node 4 cm incision right chest node 4 cm incision Description of the Procedure: see note Findings of the Procedure see note Anesthesia Type general Estimated blood loss (mL): minimal Specimen(s) collected/removed right neck node and chest node sent fresh MARIELY HENSLEY DO Jul 16, 2016 2:33 pm
[2016-07-16 16:04] VITALS: BP 112/72
[2016-07-16] MEDS: HYDROcodone/APAP 5 MG/325 MG (LORTAB) TAB PO PRN ×2 (17:18→21:27)
--- NOTE | 2016-07-16 19:13 | History & Physicial (CHS) ---
HPI History of Present Illness: 51 yo M that was admitted from the ER with fever, lymphadenopathy and worsening cough. 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 States that he had a tick bite 7 months ago and then got rash about 1 month after tick bite. Tick bit was on his left upper thigh. States that around he started getting more and more sick and was seen in the [facility] clinic multiple times prior to being tested for RMSF. Shortly after the new year he noticed that he started getting enlarged lymph nodes. The first one he noticed was in his left groin and is now the size of a golf ball. Now he has enlarged LN in his right axilla and >15 nodes in his neck. Since he has been having fever and chills almost daily. Minimal improvement with the doxycycline that was started several weeks ago. 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) Alcohol Use: Occasionally Uses Recreational Drug Use: No Smoking Status: Former Smoker Recent Foreign Travel: No Contact w/other who traveled: No Recent Hopitalizations: No Recent Infectious Disease Expo: No Physical Abuse Screen: No Sexual Abuse: No Past Medical History Ringgold Spotted Fever Family Medical History Significant Family History: No Pertinent Family Hx Family History: Diabetes mellitus G8 SISTER FHx: heart failure HEART D Headache disorder 19 MOTHER (TRIPLE BYPASS, STROKE) Hypertension 19 MOTHER Review of Systems ([facility]) Constitutional: chills, fever, malaise, weakness, No weight gain, No weight loss EENTM: no symptoms reported Respiratory: cough, short of breath, wheezing Cardiovascular: no symptoms reported, No chest pain, No edema, No palpitations Gastrointestinal: No abdominal pain, No constipation, No diarrhea, loss of appetite, No melena, nausea Genitourinary: no symptoms reported, No dysuria, No frequency, No hematuria Musculoskeletal: muscle pain, muscle weakness Skin: pruritus, rash Psychiatric/Neurological: No Symptoms Reported, Denies Anxiety, Denies Depressed Reviewed Test Results Reviewed Test Results Lab Laboratory Tests Test 07/16/16 04:22 Range/Units White Blood Count 8.5 4.3-11.0 10^3/uL Red Blood Count 4.84 4.35-5.85 10^6/uL Hemoglobin 13.2 L 13.3-17.7 G/DL Hematocrit 39 L 40-54 % Mean Corpuscular Volume 80 80-99 FL Mean Corpuscular Hemoglobin 27 25-34 PG Mean Corpuscular Hemoglobin Concent 34 32-36 G/DL Red Cell Distribution Width 13.5 10.0-14.5 % Platelet Count 232 130-400 10^3/uL Mean Platelet Volume 9.5 7.4-10.4 FL Neutrophils (%) (Auto) 66 42-75 % Lymphocytes (%) (Auto) 17 12-44 % Monocytes (%) (Auto) 12 0-12 % Eosinophils (%) (Auto) 4 0-10 % Basophils (%) (Auto) 2 0-10 % Neutrophils # (Auto) 5.6 1.8-7.8 X 10^3 Lymphocytes # (Auto) 1.4 1.0-4.0 X 10^3 Monocytes # (Auto) 1.0 0.0-1.0 X 10^3 Eosinophils # (Auto) 0.3 0.0-0.3 10^3/uL Basophils # (Auto) 0.2 H 0.0-0.1 10^3/uL Sodium Level 136 135-145 MMOL/L Potassium Level 4.3 3.6-5.0 MMOL/L Chloride Level 103 98-107 MMOL/L Carbon Dioxide Level 25 21-32 MMOL/L Anion Gap 8 5-14 MMOL/L Blood Urea Nitrogen 14 7-18 MG/DL Creatinine 1.00 0.60-1.30 MG/DL Estimat Glomerular Filtration Rate > 60 BUN/Creatinine Ratio 14 Glucose Level 103 70-105 MG/DL Calcium Level 7.8 L 8.5-10.1 MG/DL Total Bilirubin 1.5 H 0.1-1.0 MG/DL Aspartate Amino Transf (AST/SGOT) 26 5-34 U/L Alanine Aminotransferase (ALT/SGPT) 28 0-55 U/L Alkaline Phosphatase 194 H 40-136 U/L Total Protein 6.7 6.4-8.2 G/DL Albumin 3.0 L 3.2-4.5 G/DL Radiology NAME: ANAYELI GRIMES [facility] REC#: [id number] PHYSICIAN: VLAD JONES MD CC: JUAN LUIS RAMOS MD; VLAD JONES MD Page 1 of 1 RADIOLOGY REPORT VIA [facility]. [place], [place] CC: JUAN LUIS RAMOS MD; VLAD JONES MD Page 1 of 1 RADIOLOGY REPORT NAME: ANAYELI GRIMES [facility] REC#: [id number] PT STATUS: REG ER : 1965 PHYSICIAN: VLAD JONES MD ADMIT DATE: 07/15/16/ER Signed Date of Exam: 07/15/16 CHEST PA/LAT (2 VIEW) INDICATION: Cough and fever. PA and lateral chest obtained at 9:56 a.m. Heart and mediastinal silhouette are normal in appearance. There is mild right medial basilar infiltrate. Left lung is grossly clear. There is no pneumothorax or pleural fluid. IMPRESSION: Mild right medial basilar infiltrate. Otherwise negative chest. Suggest followup as clinically warranted. Dictated by: Dictated on workstation # [id number] Dict: 07/15/16 0947 Trans: 07/15/16 1140 ROGERIO [id number] Interpreted by: JUAN LUIS RAMOS MD Electronically signed by:JUAN LUIS RAMOS MD 07/15/16 1140 NAME: ANAYELI GRIMES [facility] REC#: [id number] PHYSICIAN: VLAD JONES MD CC: LAURA CRUZ; VLAD JONES MD Page 2 of 2 RADIOLOGY REPORT VIA [facility] [place], [place] CC: LAURA CRUZ; VLAD JONES MD Page 1 of 1 RADIOLOGY REPORT NAME: ANAYELI GRIMES [facility] REC#: [id number] PT STATUS: REG ER : 1965 PHYSICIAN: VLAD JONES MD ADMIT DATE: 07/15/16/ER Signed Date of Exam: 07/15/16 CT HEAD WO PROCEDURE: CT head without contrast. TECHNIQUE: Multiple contiguous axial images were obtained through the brain without the use of intravenous contrast. INDICATION: Cough, head pain, Ringgold fever. I have no priors. FINDINGS: The brain appeared normal. There is no hemorrhage, hydrocephalus, edema, mass, or mass effect. Right maxillary sinus is occluded by heterogeneous material with elements of hyperdensity. This suggests chronic inspissated secretions. There is membrane disease and partial opacification of the floor of the right frontal sinus as well as opacification of a few right-sided ethmoid air cells anteriorly. Calcified nodule in the right ethmoid air cells anteriorly , 10 mm, likely a small osteoma. The left maxillary where visualized clear. Mastoids clear. Middle ear cavities revealed no abnormal opacification. There is trace membrane thickening in the floors of the sphenoid sinuses. IMPRESSION: Normal appearance of the brain. Likely chronic paranasal sinus disease as described with the right maxillary occluded by partly hyperdense material suggestive of chronic inspissated secretions. 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 No devon air-fluid levels. Dictated by: Dictated on workstation # [id number] Dict: 07/15/16 0944 Trans: 07/15/16 1050 [id number] Interpreted by: LAURA CRUZ Electronically signed by:LAURA CURZ 07/15/16 1050 Physical Exam-(CHC) Physical Exam Vital Signs VS - Last 72 Hours, by Label 07/15/16 07/15/16 07/15/16 07/15/16 09:05 09:34 14:21 14:33 Temp 99.1 98.9 100.0 Pulse 113 99 103 Resp 16 16 16 B/P (MAP) 153/101 149/87 Pulse Ox 93 98 94 O2 Delivery Nasal Cannula Room Air 07/15/16 07/15/16 07/15/16 07/15/16 16:12 16:12 16:45 18:54 Temp 100.1 Pulse 112 Resp 19 B/P (MAP) 141/83 Pulse Ox 86 86 96 94 O2 Delivery Nasal Cannula O2 Flow Rate 2.00 2.00 07/15/16 07/15/16 07/16/16 07/16/16 19:30 21:00 00:00 04:00 Temp 99.3 100.5 100.2 Pulse 99 98 99 Resp 20 20 22 B/P (MAP) 138/75 134/89 148/85 Pulse Ox 95 95 94 O2 Delivery Nasal Cannula Nasal Cannula Nasal Cannula Nasal Cannula O2 Flow Rate 2.00 2.00 2.00 2.00 07/16/16 07/16/16 07/16/16 07/16/16 07:07 09:00 10:29 11:13 Temp 99.0 Pulse 100 Resp 22 B/P (MAP) 140/88 Pulse Ox 92 95 95 O2 Delivery Room Air Nasal Cannula O2 Flow Rate 2.00 2.00 2.00 07/16/16 07/16/16 12:00 16:04 Temp 98.8 98.3 Pulse 99 87 Resp 18 18 B/P (MAP) 133/77 112/72 Pulse Ox 96 93 O2 Delivery Nasal Cannula Nasal Cannula O2 Flow Rate 2.00 2.50 Capillary Refill : Less Than 3 Seconds General Appearance: WD/WN, no apparent distress HEENT: PERRL/EOMI Neck: lymphadenopathy (R), lymphadenopathy (L), No thyromegaly, other (> [address] in a chain ) Respiratory: decreased breath sounds, No accessory muscle use, No crackles, wheezing Cardiovascular: normal peripheral pulses, regular rate, rhythm, no edema, no gallop, no JVD, no murmur Gastrointestinal: normal bowel sounds, non tender, soft, no organomegaly, No hepatomegaly, No spleenomegaly Extremities: normal range of motion, non-tender, no pedal edema, no calf tenderness 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, no motor/sensory deficits, alert, normal mood/affect, oriented x 3 Skin: normal color, warm/dry Lymphatic: other (Large Left groin LN, large Right axillary LN all tender to palpation) Assessment/Plan Assessment/Plan Plan 51 yo M with + PCR for [place] Spotted Fever admitted for shortness of breath Plan Acute Shortness of breath - CXR concerning for PNA: started on Doxycycline and Rocephin D2 - Duonebs PRN - Encourage ambulation Diffuse Adenopathy concerning for lymphoma vs Reactive LA - Hem/Onc and Surgery consulted - Patient has LN Bx today: awaiting pathology - Continue Doxy for RMSF [place]gold Spotted Fever: See Above Fever - Tylenol PRN FEN: Reg diet DVT PPX: Will start Lovenox tomorrow as patient has procedure today Dispo: Admit to Medical floor Diagnosis/Problems: Clinical Quality Measures DVT/VTE Risk/Contraindication: Risk Factor Score Per Nursin RFS Level Per Nursing on Admit: 1=Low/No VTE PPX Copy Copies To 1: [facility], SKYE Swift MD Jul 16, 2016 19:13
[2016-07-16 20:00] VITALS: BP 135/89
[2016-07-16] MEDS ORDERED: NON-FORMULARY MEDICATION 1 EA EA (Melatonin 10 MG) PO SCH (21:00)
[2016-07-16] MEDS: MELATONIN 3 MG TABLET PO SCH (21:24)
[2016-07-17] VITALS (7 sets, daily range): BP systolic 124–163; BP diastolic 68–90
[2016-07-17] MEDS: DOXYCYCLINE 100 MG/NS 100 ML IVPB IV SCH ×4 (05:12→16:49)
[2016-07-17] MEDS: PANTOPRAZOLE 40 MG (PROTONIX) TAB PO SCH (05:13)
[2016-07-17 06:58] LABS: BASOPHILS % (AUTO) 0 % (0-10); EOSINOPHILS % (AUTO) 0 % (0-10); LYMPHOCYTES # (AUTO) 0.7 X 10^3 (1.0-4.0); LYMPHOCYTES % (AUTO) 6 % (12-44); MEAN CORPUSCULAR HEMOGLOBIN 27 PG (25-34); MEAN CORPUSCULAR HGB CONC 34 G/DL (32-36); MEAN CORPUSCULAR VOLUME 80 FL (80-99); MEAN PLATELET VOLUME 10.5 FL (7.4-10.4); MONOCYTES # (AUTO) 0.9 X 10^3 (0.0-1.0); MONOCYTES % (AUTO) 8 % (0-12); NEUTROPHILS # (AUTO) 9.4 X 10^3 (1.8-7.8); NEUTROPHILS % (AUTO) 86 % (42-75); PLATELET COUNT 220 10^3/uL (130-400); RED BLOOD COUNT 4.43 10^6/uL (4.35-5.85); RED CELL DISTRIBUTION WIDTH 13.4 % (10.0-14.5); WHITE BLOOD COUNT 10.9 10^3/uL (4.3-11.0)
[2016-07-17 07:16] LABS: ALANINE AMINOTRANSFERASE 22 U/L (0-55); ANION GAP 8 MMOL/L (5-14); ASPARTATE AMINO TRANSFERASE 20 U/L (5-34); BILIRUBIN,DIRECT 0.5 MG/DL (0.0-0.3); BILIRUBIN,INDIRECT 0.5 MG/DL; BLOOD UREA NITROGEN 19 MG/DL (7-18); BUN/CREATININE RATIO 22; CALCIUM 8.3 MG/DL (8.5-10.1); CARBON DIOXIDE 26 MMOL/L (21-32); CHLORIDE 105 MMOL/L (98-107); CREATININE SERUM 0.87 MG/DL (0.60-1.30); GFR ESTIMATED > 60; GLUCOSE 123 MG/DL (70-105); POTASSIUM 4.4 MMOL/L (3.6-5.0); SODIUM 139 MMOL/L (135-145); TOTAL PROTEIN 6.6 G/DL (6.4-8.2)
[2016-07-17] MEDS: RT-ALBUTEROL SULF 2.5 MG/3 ML PRE-MIX VIAL IH SCH ×4 (07:22→18:45)
[2016-07-17 08:31] LABS: BAND NEUTROPHILS 3 %; BASOPHILS % (MANUAL) 0 %; EOSINOPHILS % (MANUAL) 0 %; LYMPHOCYTES % (MANUAL) 5 %; NEUTROPHILS % (MANUAL) 85 %
[2016-07-17] MEDS ORDERED: NON-FORMULARY MEDICATION 1 EA EA (Omeprazole 40 MG) PO SCH (09:00)
[2016-07-17] MEDS: HYDROcodone/APAP 5 MG/325 MG (LORTAB) TAB PO PRN ×3 (09:14→21:25)
--- NOTE | 2016-07-17 17:39 | Anesthesia-General Post-Op ---
General Patient Condition Mental Status/LOC: Same as Preop Cardiovascular: Satisfactory Nausea/Vomiting: Absent Respiratory: Satisfactory Pain: Controlled Complications: Absent Post Op Complications Complications None Follow Up Care/Instructions Patient Instructions None needed. Anesthesia/Patient Condition Patient Condition Patient is doing well, no complaints, stable vital signs, no apparent adverse anesthesia problems. No complications reported per nursing. NIKKI TERESA CRNA Jul 17, 2016 17:38
--- NOTE | 2016-07-17 19:25 | Progress Note (SOAP) ---
Subjective Subjective/Events-last exam Patient feeling much better this AM. States that his breathing is more comfortable. Still requires O2. Tolerating PO diet and fluids. No BM in last 24 hrs Date seen by provider: Jul 17, 2016 Objective Exam Last Set of Vital Signs Vital Signs Date Time Temp Pulse Resp B/P (MAP) Pulse Ox O2 Delivery O2 Flow Rate FiO2 07/17/16 18:45 96 2.50 07/17/16 16:26 97.1 87 18 142/79 Nasal Cannula Capillary Refill : Less Than 3 Seconds I&O Intake and Output 07/17/16 00:00 Intake Total 3310 ml Output Total 1425 ml Balance 1885 ml Intake Oral 1160 ml IV Total 2150 ml Output Urine Total 1425 ml # Voids 2 General: Alert, Oriented X3, Cooperative, No Acute Distress HEENT: Mucous Memb Moist/[place] Neck: Other (+ LA in neck, axilla, and groin) Lungs: Normal Air Movement, Other (+ basilar crackles) Heart: Regular Rate, No Murmurs Abdomen: Normal Bowel Sounds, Soft, No Tenderness, No Masses Extremities: No Edema, No Tenderness/Swelling Skin: Other (Peticheal rash on LE bilaterally) Neuro: Normal Gait, Normal Speech, Strength at 5/5 X4 Ext, Cranial Nerves 3-12 NL Psych/Mental Status: Mental Status NL, Mood NL Results/Procedures Lab Laboratory Tests 07/17/16 05:15: White Blood Count 10.9, Red Blood Count 4.43, Hemoglobin 12.0L, Hematocrit 36L, Mean Corpuscular Volume 80, Mean Corpuscular Hemoglobin 27, Mean Corpuscular Hemoglobin Concent 34, Red Cell Distribution Width 13.4, Platelet Count 220, Mean Platelet Volume 10.5H, Neutrophils (%) (Auto) 86H, Lymphocytes (%) (Auto) 6L, Monocytes (%) (Auto) 8, Eosinophils (%) (Auto) 0, Basophils (%) (Auto) 0, Neutrophils # (Auto) 9.4H, Lymphocytes # (Auto) 0.7L, Monocytes # (Auto) 0.9, Eosinophils # (Auto) 0.0, Basophils # (Auto) 0.0, Neutrophils % (Manual) 85, Lymphocytes % (Manual) 5, Monocytes % (Manual) 7, Eosinophils % (Manual) 0, Basophils % (Manual) 0, Band Neutrophils 3, Blood Morphology Comment NORMAL, Sodium Level 139, Potassium Level 4.4, Chloride Level 105, Carbon Dioxide Level 26, Anion Gap 8, Blood Urea Nitrogen 19H, Creatinine 0.87, Estimat Glomerular Filtration Rate > 60, BUN/Creatinine Ratio 22, Glucose Level 123H, Calcium Level 8.3L, Total Bilirubin 1.0, Direct Bilirubin 0.5H, Indirect Bilirubin 0.5, Aspartate Amino Transf (AST/SGOT) 20, Alanine Aminotransferase (ALT/SGPT) 22, Alkaline Phosphatase 158H, Total Protein 6.6, Albumin 3.0L Microbiology 07/15/16 Blood Culture - Preliminary, Resulted No growth 07/15/16 Gram Stain - Final, Resulted 07/15/16 CSF Culture - Preliminary, Resulted No growth 07/16/16 MRSA Screen - Final, Complete MRSA not isolated Radiology NAME: ANAYELI GRIMES [facility] REC#: [id number] PHYSICIAN: VLAD JONES MD CC: JUAN LUIS RAMOS MD; VLAD JONES MD Page 1 of 1 RADIOLOGY REPORT VIA [facility]. [place], [place] CC: JUAN LUIS RAMOS MD; VLAD JONES MD Page 1 of 1 RADIOLOGY REPORT NAME: ANAYELI GRIMES [facility] REC#: [id number] PT STATUS: REG ER : 1965 PHYSICIAN: VLAD JONES MD ADMIT DATE: 07/15/16/ER Signed Date of Exam: 07/15/16 CHEST PA/LAT (2 VIEW) INDICATION: Cough and fever. PA and lateral chest obtained at 9:56 a.m. Heart and mediastinal silhouette are normal in appearance. There is mild right medial basilar infiltrate. Left lung is grossly clear. There is no pneumothorax or pleural fluid. IMPRESSION: Mild right medial basilar infiltrate. Otherwise negative chest. Suggest followup as clinically warranted. Dictated by: Dictated on workstation # [id number] Dict: 07/15/16 0947 Trans: 07/15/16 1140 ROGERIO [id number] Interpreted by: JUAN LUIS RAMOS MD Electronically signed by:JUAN LUIS RAMOS MD 07/15/16 1140 [id number] PHYSICIAN: VLAD JONES MD CC: LAURA CRUZ; VLAD JONES MD Page 2 of 2 RADIOLOGY REPORT VIA [facility]. [place], [place] CC: LAURA CRUZ; VLAD JONES MD Page 1 of 1 RADIOLOGY REPORT NAME: ANAYELI GRIMES [facility] REC#: [id number] PT STATUS: REG ER : 1965 PHYSICIAN: VLAD JONES MD ADMIT DATE: 07/15/16/ER Signed Date of Exam: 07/15/16 CT HEAD WO PROCEDURE: CT head without contrast. TECHNIQUE: Multiple contiguous axial images were obtained through the brain without the use of intravenous contrast. INDICATION: Cough, head pain, Peerless fever. I have no priors. FINDINGS: The brain appeared normal. There is no hemorrhage, hydrocephalus, edema, mass, or mass effect. Right maxillary sinus is occluded by heterogeneous material with elements of hyperdensity. This suggests chronic inspissated secretions. There is membrane disease and partial opacification of the floor of the right frontal sinus as well as opacification of a few right-sided ethmoid air cells anteriorly. Calcified nodule in the right ethmoid air cells anteriorly , 10 mm, likely a small osteoma. The left maxillary where visualized clear. Mastoids clear. Middle ear cavities revealed no abnormal opacification. There is trace membrane thickening in the floors of the sphenoid sinuses. IMPRESSION: Normal appearance of the brain. Likely chronic paranasal sinus disease as described with the right maxillary occluded by partly hyperdense material suggestive of chronic inspissated secretions. 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 No devon air-fluid levels. Dictated by: Dictated on workstation # [id number] Dict: 07/15/16 0944 Trans: 07/15/16 1050 ROGERIO [id number] Interpreted by: LAURA CRUZ Electronically signed by:LAURA CRUZ 07/15/16 1050 Assessment/Plan Assessment/Plan Plan 51 yo M with + PCR for Peerless Spotted Fever admitted for shortness of breath Plan Acute Shortness of breath - CXR concerning for PNA: started on Doxycycline and Rocephin D3 - Duonebs PRN - Encourage ambulation Diffuse Adenopathy concerning for lymphoma vs Reactive LA - Hem/Onc and Surgery consulted - Patient had LN Bx: awaiting pathology - Continue Doxy for RMSF Peerless Spotted Fever: See Above Fever - Tylenol PRN FEN: Reg diet DVT PPX: Anticoagulation per surgery Dispo: Admit to Medical floor Diagnosis/Problems: Clinical Quality Measures DVT/VTE Risk/Contraindication: Risk Factor Score Per Nursin RFS Level Per Nursing on Admit: 1=Low/No VTE PPX SKYE MONTEJO MD Jul 17, 2016 19:25
[2016-07-17] MEDS ORDERED: ENOXAPARIN 40 MG/0.4 ML (LOVENOX) SYR SC SCH (19:30)
[2016-07-17] MEDS: ONDANSETRON 4 MG/2 ML (SDV) Z0FRAN IV PRN (19:57)
[2016-07-17] MEDS: MELATONIN 3 MG TABLET PO SCH (21:25)
[2016-07-17] MEDS: KETOROLAC 30 MG/ML VIAL IV PRN (21:25)
[2016-07-18] VITALS: BP 140/83
[2016-07-18] MEDS: diphenhydrAMINE 25 MG TAB (BENADRYL) PO PRN ×2 (00:54→16:35)
[2016-07-18 04:07] VITALS: BP 139/92
[2016-07-18] MEDS: DOXYCYCLINE 100 MG/NS 100 ML IVPB IV SCH ×4 (05:17→16:44)
[2016-07-18] MEDS: HYDROcodone/APAP 5 MG/325 MG (LORTAB) TAB PO PRN ×3 (05:20→21:31)
[2016-07-18] MEDS: PANTOPRAZOLE 40 MG (PROTONIX) TAB PO SCH (05:21)
[2016-07-18 06:12] LABS: BASOPHILS # (AUTO) 0.1 10^3/uL (0.0-0.1); BASOPHILS % (AUTO) 1 % (0-10); EOSINOPHILS # (AUTO) 0.2 10^3/uL (0.0-0.3); EOSINOPHILS % (AUTO) 2 % (0-10); LYMPHOCYTES # (AUTO) 0.9 X 10^3 (1.0-4.0); LYMPHOCYTES % (AUTO) 10 % (12-44); MEAN CORPUSCULAR HEMOGLOBIN 27 PG (25-34); MEAN CORPUSCULAR HGB CONC 34 G/DL (32-36); MEAN CORPUSCULAR VOLUME 80 FL (80-99); MEAN PLATELET VOLUME 10.1 FL (7.4-10.4); MONOCYTES # (AUTO) 1.2 X 10^3 (0.0-1.0); MONOCYTES % (AUTO) 13 % (0-12); NEUTROPHILS # (AUTO) 6.7 X 10^3 (1.8-7.8); NEUTROPHILS % (AUTO) 74 % (42-75); PLATELET COUNT 226 10^3/uL (130-400); RED BLOOD COUNT 4.71 10^6/uL (4.35-5.85); RED CELL DISTRIBUTION WIDTH 13.7 % (10.0-14.5); WHITE BLOOD COUNT 9.1 10^3/uL (4.3-11.0)
[2016-07-18 06:31] LABS: ALANINE AMINOTRANSFERASE 32 U/L (0-55); ALBUMIN 3.1 G/DL (3.2-4.5); ANION GAP 9 MMOL/L (5-14); ASPARTATE AMINO TRANSFERASE 31 U/L (5-34); BILIRUBIN,TOTAL 1.4 MG/DL (0.1-1.0); BLOOD UREA NITROGEN 15 MG/DL (7-18); BUN/CREATININE RATIO 17; CALCIUM 8.3 MG/DL (8.5-10.1); CARBON DIOXIDE 26 MMOL/L (21-32); CHLORIDE 103 MMOL/L (98-107); CREATININE SERUM 0.88 MG/DL (0.60-1.30); GFR ESTIMATED > 60; GLUCOSE 81 MG/DL (70-105); POTASSIUM 4.2 MMOL/L (3.6-5.0); SODIUM 138 MMOL/L (135-145); TOTAL PROTEIN 6.9 G/DL (6.4-8.2)
[2016-07-18] MEDS: RT-ALBUTEROL SULF 2.5 MG/3 ML PRE-MIX VIAL IH SCH ×4 (07:00→19:18)
[2016-07-18 08:00] VITALS: BP 132/81
[2016-07-18] MEDS: CATHETER FLUSH 10 ML SYR IV PRN ×2 (08:50→16:44)
[2016-07-18] MEDS: ENOXAPARIN 40 MG/0.4 ML (LOVENOX) SYR SC SCH (08:51)
[2016-07-18 12:00] VITALS: BP 149/73
[2016-07-18 16:00] VITALS: BP 143/82
--- NOTE | 2016-07-18 19:43 | Progress Note (SOAP) ---
Subjective Subjective/Events-last exam Patient has rough night. Not able to sleep. Lots of itching and fever. Feels better with his breathing but still requiring oxygen. No chest pain or palpitations. + abdominal pain and states that he has not had BM since . Tolerating ambulation Date seen by provider: Jul 18, 2016 Objective Exam Last Set of Vital Signs Vital Signs Date Time Temp Pulse Resp B/P (MAP) Pulse Ox O2 Delivery O2 Flow Rate FiO2 07/18/16 19:19 94 3.00 07/18/16 16:13 100.4 07/18/16 16:00 104 18 143/82 Nasal Cannula Capillary Refill : Less Than 3 Seconds I&O Intake and Output 07/18/16 00:00 Intake Total 1970 ml Output Total 925 ml Balance 1045 ml Intake Oral 1970 ml Output Urine Total 925 ml # Voids 2 General: Alert, Oriented X3, No Acute Distress HEENT: Mucous Memb Moist/[place], Other (new palpable LN in submental area.) Neck: Supple, Other (+ Lymphadenopathy in chains anterior and posterior neck) Heart: Regular Rate, No Murmurs Abdomen: Normal Bowel Sounds, Soft, Other (mild ttp LLQ) Extremities: No Edema, No Tenderness/Swelling Skin: Other (+ peticheal rash on LE bilaterally) Neuro: Normal Gait, Normal Speech, Strength at 5/5 X4 Ext, Sensation Intact, Cranial Nerves 3-12 NL Psych/Mental Status: Mental Status NL, Mood NL Results/Procedures Lab Laboratory Tests 07/18/16 05:40: White Blood Count 9.1, Red Blood Count 4.71, Hemoglobin 12.7L, Hematocrit 38L, Mean Corpuscular Volume 80, Mean Corpuscular Hemoglobin 27, Mean Corpuscular Hemoglobin Concent 34, Red Cell Distribution Width 13.7, Platelet Count 226, Mean Platelet Volume 10.1, Neutrophils (%) (Auto) 74, Lymphocytes (%) (Auto) 10L , Monocytes (%) (Auto) 13H, Eosinophils (%) (Auto) 2, Basophils (%) (Auto) 1, Neutrophils # (Auto) 6.7, Lymphocytes # (Auto) 0.9L, Monocytes # (Auto) 1.2H, Eosinophils # (Auto) 0.2, Basophils # (Auto) 0.1, Sodium Level 138, Potassium Level 4.2, Chloride Level 103, Carbon Dioxide Level 26, Anion Gap 9, Blood Urea Nitrogen 15, Creatinine 0.88, Estimat Glomerular Filtration Rate > 60, BUN/ Creatinine Ratio 17, Glucose Level 81, Calcium Level 8.3L, Total Bilirubin 1.4H , Aspartate Amino Transf (AST/SGOT) 31, Alanine Aminotransferase (ALT/SGPT) 32, Alkaline Phosphatase 204H, Total Protein 6.9, Albumin 3.1L Microbiology 07/15/16 Blood Culture - Preliminary, Resulted No growth 07/15/16 Gram Stain - Final, Resulted 07/15/16 CSF Culture - Preliminary, Resulted No growth 07/16/16 MRSA Screen - Final, Complete MRSA not isolated [id number] PHYSICIAN: VLAD JONES MD CC: JUAN LUIS RAMOS MD; VLAD JONES MD Page 1 of 1 RADIOLOGY REPORT VIA [place], [place] CC: JUAN LUIS RAMOS MD; VLAD JONES MD Page 1 of 1 [id number] PT STATUS: REG ER : 1965 PHYSICIAN: VLAD JONES MD ADMIT DATE: 07/15/16/ER Signed Date of Exam: 07/15/16 CHEST PA/LAT (2 VIEW) INDICATION: Cough and fever. PA and lateral chest obtained at 9:56 a.m. Heart and mediastinal silhouette are normal in appearance. There is mild right medial basilar infiltrate. Left lung is grossly clear. There is no pneumothorax or pleural fluid. IMPRESSION: Mild right medial basilar infiltrate. Otherwise negative chest. Suggest followup as clinically warranted. Dictated by: Dictated on workstation # [id number] Dict: 07/15/16 0947 Trans: 07/15/16 1140 [id number] Interpreted by: JUAN LUIS RAMOS MD Electronically signed by:JUAN LUIS RAMOS MD 07/15/16 1140 [facility] [id number] PHYSICIAN: VLAD JONES MD CC: LAURA CRUZ; VLAD JONES MD Page 2 of 2 RADIOLOGY REPORT VIA [facility]. [place], [place] CC: LAURA CRUZ; VLAD JONES MD Page 1 of 1 RADIOLOGY REPORT NAME: ANAYELI GRIMES [facility] REC#: [id number] PT STATUS: REG ER : 1965 PHYSICIAN: VLAD JONES MD ADMIT DATE: 07/15/16/ER Signed Date of Exam: 07/15/16 CT HEAD WO PROCEDURE: CT head without contrast. TECHNIQUE: Multiple contiguous axial images were obtained through the brain without the use of intravenous contrast. INDICATION: Cough, head pain, Benavides fever. I have no priors. FINDINGS: The brain appeared normal. There is no hemorrhage, hydrocephalus, edema, mass, or mass effect. Right maxillary sinus is occluded by heterogeneous material with elements of hyperdensity. This suggests chronic inspissated secretions. There is membrane disease and partial opacification of the floor of the right frontal sinus as well as opacification of a few right-sided ethmoid air cells anteriorly. Calcified nodule in the right ethmoid air cells anteriorly , 10 mm, likely a small osteoma. The left maxillary where visualized clear. Mastoids clear. Middle ear cavities revealed no abnormal opacification. There is trace membrane thickening in the floors of the sphenoid sinuses. IMPRESSION: Normal appearance of the brain. Likely chronic paranasal sinus disease as described with the right maxillary occluded by partly hyperdense material suggestive of chronic inspissated secretions. 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 No devon air-fluid levels. Dictated by: Dictated on workstation # [id number] Dict: 07/15/16 0944 Trans: 07/15/16 1050 ROGERIO [id number] Interpreted by: LAURA CRUZ Electronically signed by:LAURA CRUZ 07/15/16 1050 Assessment/Plan Assessment/Plan Plan 51 yo M with + PCR for Benavides Spotted Fever admitted for shortness of breath Plan Acute Shortness of breath - CXR concerning for PNA: started on Doxycycline and Rocephin D4, still having fevers - Duonebs PRN - Encourage ambulation - Repeat CXR in AM Diffuse Adenopathy concerning for lymphoma vs Reactive LA - Hem/Onc and Surgery consulted - Patient had LN Bx: awaiting pathology - Continue Doxy for RMSF Benavides Spotted Fever: See Above Elevated Alk Phos - GGT pending Elevated Bilirubin Fever - Tylenol PRN FEN: Reg diet DVT PPX: Lovenox Dispo: Admit to Medical floor Diagnosis/Problems: Clinical Quality Measures DVT/VTE Risk/Contraindication: Risk Factor Score Per Nursin RFS Level Per Nursing on Admit: 1=Low/No VTE PPX SKYE MONTEJO MD Jul 18, 2016 19:43
[2016-07-18 20:00] VITALS: BP 136/79
[2016-07-18] MEDS: MELATONIN 3 MG TABLET PO SCH (21:27)
[2016-07-19] VITALS (7 sets, daily range): BP systolic 132–149; BP diastolic 75–88
[2016-07-19] MEDS: diphenhydrAMINE 25 MG TAB (BENADRYL) PO PRN ×2 (01:14→14:48)
[2016-07-19] MEDS: DOXYCYCLINE 100 MG/NS 100 ML IVPB IV SCH ×2 (04:36)
[2016-07-19] MEDS: HYDROcodone/APAP 5 MG/325 MG (LORTAB) TAB PO PRN ×3 (04:51→20:14)
[2016-07-19 05:41] LABS: BASOPHILS # (AUTO) 0.2 10^3/uL (0.0-0.1); BASOPHILS % (AUTO) 2 % (0-10); EOSINOPHILS # (AUTO) 0.2 10^3/uL (0.0-0.3); EOSINOPHILS % (AUTO) 2 % (0-10); LYMPHOCYTES # (AUTO) 1.5 X 10^3 (1.0-4.0); LYMPHOCYTES % (AUTO) 15 % (12-44); MEAN CORPUSCULAR HEMOGLOBIN 27 PG (25-34); MEAN CORPUSCULAR HGB CONC 35 G/DL (32-36); MEAN CORPUSCULAR VOLUME 80 FL (80-99); MEAN PLATELET VOLUME 10.5 FL (7.4-10.4); MONOCYTES % (AUTO) 11 % (0-12); NEUTROPHILS # (AUTO) 6.8 X 10^3 (1.8-7.8); NEUTROPHILS % (AUTO) 70 % (42-75); PLATELET COUNT 178 10^3/uL (130-400); RED BLOOD COUNT 4.45 10^6/uL (4.35-5.85); RED CELL DISTRIBUTION WIDTH 13.6 % (10.0-14.5); WHITE BLOOD COUNT 9.7 10^3/uL (4.3-11.0)
[2016-07-19] MEDS: PANTOPRAZOLE 40 MG (PROTONIX) TAB PO SCH (06:09)
[2016-07-19 06:25] LABS: ALANINE AMINOTRANSFERASE 30 U/L (0-55); ALBUMIN 2.8 G/DL (3.2-4.5); ANION GAP 8 MMOL/L (5-14); ASPARTATE AMINO TRANSFERASE 28 U/L (5-34); BILIRUBIN,TOTAL 1.5 MG/DL (0.1-1.0); BLOOD UREA NITROGEN 14 MG/DL (7-18); BUN/CREATININE RATIO 17; CARBON DIOXIDE 25 MMOL/L (21-32); CHLORIDE 101 MMOL/L (98-107); CREATININE SERUM 0.82 MG/DL (0.60-1.30); GFR ESTIMATED > 60; GLUCOSE 94 MG/DL (70-105); POTASSIUM 4.2 MMOL/L (3.6-5.0); SODIUM 134 MMOL/L (135-145); TOTAL PROTEIN 6.4 G/DL (6.4-8.2)
[2016-07-19] MEDS: RT-ALBUTEROL SULF 2.5 MG/3 ML PRE-MIX VIAL IH SCH ×4 (08:28→20:53)
[2016-07-19] MEDS: ENOXAPARIN 40 MG/0.4 ML (LOVENOX) SYR SC SCH (08:51)
--- NOTE | 2016-07-19 09:27 | Diagnostic Imaging Report ---
PA and lateral chest at 835 hours. INDICATION: Cough. FINDINGS: The heart size is within normal limits and stable when compared to 07/15/16. The previous exam did note a mild right medial basilar infiltrate. On this study, the density in the right lung base has increased. There is greater involvement of the right lower lobe by pneumonia/atelectasis than noted on the prior exam. The lateral view also suggests that there is some fluid in this area. Furthermore, a new alveolar/interstitial infiltrate has developed in the right midlung. There also appears to be mild atelectasis/pneumonia and small amount of fluid in the left lung base. The upper lungs are clear. The mediastinum is not widened. The osseous structures are intact. IMPRESSION: The appearance of the chest has worsened since the prior study as there is greater involvement of both lung bases by pneumonia/atelectasis and fluid. A followup exam would be recommended to assure that these abnormal parenchymal densities clear completely. If these abnormal densities do not clear completely, then CT of the chest may be necessary for further study. Dictated by: Dictated on workstation # [id number]
[2016-07-19] MEDS ORDERED: NS 100 ML (IVPB) BAG IV ONE (10:15)
[2016-07-19] MEDS ORDERED: CATHETER FLUSH 10 ML SYR IV PRN (10:15)
[2016-07-19] MEDS ORDERED: IOHEXOL 350 MG/ML 100 ML (OMNIPAQUE 350) VIAL IV ONE (10:15)
--- NOTE | 2016-07-19 11:16 | Progress Note-Hospitalist ---
Progress Note Progress Notes/Assess & Plan Date Seen 07/19/16 Diagonsis/Assessment & Plan Chart Review: Fever continues max 100.8, pt on Rocephin and Doxy, CXR worsened infiltrates, WBC 9, Albumin 2.8, CSF and blood cultures negative, Will consult Dr. Grey and order CT chest Patient Interview: Pt was told his CXR looked worse today but pt states he does not feel worse. Dr. Grey will see pt. Pt states he has not been ambulating well for a while. Pt states he has been ill since around 2015. Pt states pt was getting worse while seeing many doctors so she brought him to the hospital. Pt states his lymph nodes are swollen and two more popped up today. Pt is a previous smoker but quit many years ago. 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 Pt states he may have a BM soon. Pt states his gut hurts badly currently. Vitals stable, chronically ill, fatigued, at bedside Regular rate and rhythm, coarse breath sounds all sevilla and coughing frequently during deep breaths No edema Rash noted Lymphadenopathy cervical posterior inguinal and axilla noted Assessment per [facility]: 51 yo M with + PCR for [place] Spotted Fever admitted for shortness of breath Plan Acute Shortness of breath - CXR concerning for PNA: started on Doxycycline and Rocephin D4, still having fevers now worse CXR obtaining CT chest and consulting Dr Grey - Keshawn ordered - Encouraged ambulation Diffuse Adenopathy concerning for lymphoma vs Reactive LA - Hem/Onc and Surgery consulted - Patient had LN Bx: awaiting pathology still pending - Continue Doxy for RMSF [place] Spotted Fever: See Above Elevated Alk Phos - GGT 93 Elevated Bilirubin Fever - Tylenol PRN Plan: Dr. Grey consult CT chest Lovenox Abx Nebs O2 Mysterious case Scribed by Sj Rios under the direct supervision of Dr. Cruz. AGGIE CRUZ DO Jul 19, 2016 11:16
--- NOTE | 2016-07-19 11:23 | Diagnostic Imaging Report ---
PROCEDURE: CT chest with contrast only. TECHNIQUE: Multiple contiguous axial images were obtained through the chest after administration of intravenous contrast. INDICATION: Chest discomfort. The previous CT chest exam performed on 07/05/2016, noted bilateral axillary, mediastinal, and hilar adenopathy. The CT abdomen/pelvis exam performed in conjunction with the previous study also noted para-aortic, mesenteric, iliac, and inguinal adenopathy as well as splenomegaly. These findings were felt to be worrisome for lymphoma. By history the patient also has a diagnosis of [place] tick fever. On this exam there has been a generalized increase in the adenopathy noted on the previous study. The largest right axillary lymph node now measures approximately 3.9 cm as opposed to 3.3 cm previously. The largest lymph node on the left measures 2.4 cm as opposed to 2.0 cm previously. The pretracheal node on the right measuring 1.8 cm on the previous is now estimated to be 2.0 cm. The largest aortico-pulmonary window node now measures 1.7 cm as opposed to 1.4 cm previously. The subcarinal adenopathy measures 2.5 cm. On the prior exam this area measured 2.3 cm. The limited sections through the upper abdomen also show generalized enlargement of the lymph nodes in the para-aortic region. The spleen was not visualized in its entirety but may also be somewhat larger than seen previously. In the interval since the prior study, a small amount of fluid has developed about the gallbladder. There is no sign of cholelithiasis, but the possibility of acute cholecystitis should be considered. Also, in the interval since the previous exam, bibasilar pneumonia/atelectasis and bilateral pleural effusions have developed. There is greater involvement on the right. The right pleural effusion measures 4.9 cm in maximum depth while the left-sided effusion is estimated to be 2.5 cm. A new area of pneumonia/atelectasis has also developed in the right perihilar region. The upper lungs are generally clear. The aorta is not abnormally dilated. There is no definite defect within the pulmonary arteries to indicate a pulmonary embolus although the pulmonary arteries are not well opacified. The heart size is within normal limits and stable. The bone windows show no sign of a fracture or a destructive lesion. IMPRESSION: 1. The appearance of the chest has worsened since the prior study as there has been a generalized increase in the adenopathy involving the thorax and the visualized upper abdomen. The spleen is also somewhat larger than on the prior exam. 2. Bibasilar pneumonia/atelectasis and bilateral pleural effusions have also developed. 3. The fluid about the gallbladder is nonspecific, but the possibility of acute cholecystitis should be considered. 4. These results were discussed with Dr. Blanche Crockett. Dictated by: Dictated on workstation # [id number]
--- NOTE | 2016-07-19 13:00 | Pulmonary Consultation ---
History of Present Illness History of Present Illness Date of Consultation 07/19/16 12:55 Date of Admission History of Present Illness 51yo admitted to [facility] on 07/16/[address] Crockett is now covering and has asked that I see patient in consultation. He was admitted to ED secondary to fever, lymphadenopathy and worsening cough. He was diagnosed with [place] spotted fever by [facility] and had been undergoing out patient treatment with doxycycline. Pt has noticed enlarged lymph nodes since . Dr. Crockett ordered CT scan of chest today which shows significant mediastinal lymphadenopathy and bilateral pleural effusions. Pathology report from recent lymph node bx is positive for Tcell lymphoma. Allergies and Home Medications Allergies Coded Allergies: No Known Drug Allergies (Unverified , 07/15/16) Home Medications Doxycycline Hyclate 100 Mg Capsule, 100 MG PO BID, (Reported) FILLED 07/13/16 #28 FOR 1 14 DAY THERAPY Ibuprofen 200 Mg Tablet, 600 MG PO BID, (Reported) TAKES 3 (200 MG) TABLETS Melatonin 5 Mg Capsule, 10 MG PO HS, (Reported) TAKES 2 (5 MG) TABLETS Omeprazole 40 Mg Capsule.dr, 40 MG PO DAILY, (Reported) Promethazine HCl 50 Mg Tablet, 25 MG PO Q8H PRN for NAUSEA/VOMITING, (Reported) Past Mgqioal-Ilxoyw-Orgmks Hx Patient Social History Alcohol Use: Occasionally Uses Recreational Drug Use: No Smoking Status: Former Smoker Recent Foreign Travel: No Contact w/Someone Who Travel: No Recent Infectious Disease Expo: No Recent Hopitalizations: No Physical Abuse Screen: No Sexual Abuse: No Seasonal Allergies Seasonal Allergies: Yes Surgeries HX Surgeries: No Respiratory Hx Respiratory Disorders: No Cardiovascular Hx Cardiac Disorders: No Neurological Hx Neurological Disorders: Yes ([place] SPOTTED FEVER) Reproductive System Sexually Transmitted Disease: No HIV/AIDS: No Genitourinary Hx Genitourinary Disorders: No Gastrointestinal Hx Gastrointestinal Disorders: No Musculoskeletal Hx Musculoskeletal Disorders: No Endocrine Hx Endocrine Disorders: No HEENT HX ENT Disorders: No Cancer Hx Cancer: Yes (NOT DX WITH CA BUT HAS ENLARGED LYMPH NODES) Psychosocial Hx Psychiatric Problems: No Reviewed Nursing Assessment Reviewed/Agree w Nursing PMH: Yes Family Medical History Significant Family History: No Pertinent Family Hx Family Medial History: Diabetes mellitus G8 SISTER FHx: heart failure HEART D Headache disorder 19 MOTHER (TRIPLE BYPASS, STROKE) Hypertension 19 MOTHER Exam Exam Vital Signs Date Time Temp Pulse Resp B/P (MAP) Pulse Ox O2 Delivery O2 Flow Rate FiO2 07/19/16 11:16 95 3.00 07/19/16 09:00 Room Air 07/19/16 08:29 92 3.00 07/19/16 08:00 98.2 93 16 132/87 96 Nasal Cannula 2.50 07/19/16 04:00 99.8 101 20 135/75 97 Nasal Cannula 2.50 07/19/16 00:00 100.8 100 16 134/82 94 Nasal Cannula 2.50 07/18/16 21:00 Nasal Cannula 2.00 07/18/16 20:00 99.1 97 20 136/79 96 Nasal Cannula 2.50 07/18/16 19:19 94 3.00 07/18/16 16:13 100.4 07/18/16 16:00 99.4 104 18 143/82 93 Nasal Cannula 2.50 07/18/16 14:33 99.4 07/18/16 14:25 101.8 07/18/16 14:24 93 2.50 I & O 07/19/16 06:59 Intake Total 3240 ml Output Total 3100 ml Balance 140 ml General Appearance: Chronically ill HEENT: PERRL/EOMI Neck: Full Range of Motion, Normal Inspection, Non Tender, Supple Respiratory: Lungs Clear Cardiovascular: Regular Rate, Rhythm Capillary Refill: Less Than 3 Seconds Gastrointestinal: normal bowel sounds, non tender, soft, no organomegaly, No hepatomegaly, No spleenomegaly Extremity: Normal Capillary Refill, Normal Inspection, Non Tender, No Pedal Edema Neurologic/Psychiatric: Alert, Oriented x3, No Motor/Sensory Deficits Skin: Warm/Dry Lymphatic: Axilla Node Tender (L), Axilla Node Tender (R), Inguinal Node Tender (R), Other (bilateral cervical, axillary, inguinal, bulky adenopathy) Results Lab Laboratory Tests 07/18/16 05:40 07/19/16 05:26 Assessment/Plan Assessment/Plan [facility] lymphoma -Oncology consulted. -D/C abx Bilateral pleural effusion with atelectasis r/o PNA -check BNP -change Abx to zosyn -Give lasix 40mg IV x 1 Clinical Quality Measures DVT/VTE Risk/Contraindication: Risk Factor Score Per Nursin RFS Level Per Nursing on Admit: 1=Low/No VTE PPX JIN HERNANDEZ DO Jul 19, 2016 13:00
[2016-07-19] MEDS ORDERED: PIPERACILLIN/TAZOBACTAM 4.5 GM/NS 100 ML IV NR ×2 (13:56)
[2016-07-19] MEDS ORDERED: FUROSEMIDE 40 MG/4 ML INJ (LASIX) IVP NR (14:03)
[2016-07-19] MEDS ORDERED: BISACODYL 10 MG SUPP (DULCOLAX) PR PRN (14:15)
[2016-07-19] MEDS: DOXYCYCLINE 100 MG (VIBRAMYCIN) TABLET PO SCH (17:13)
--- NOTE | 2016-07-19 19:41 | Progress Note (SOAP) ---
Subjective Subjective/Events-last exam Continues to have fevers and night sweats and weakness. 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 Objective Exam Vital Signs Date Time Temp Pulse Resp B/P (MAP) Pulse Ox O2 Delivery O2 Flow Rate FiO2 07/19/16 16:46 100.4 100 20 136/84 97 Nasal Cannula 2.50 07/19/16 14:53 94 3.00 07/19/16 12:00 100.9 97 20 149/87 96 Nasal Cannula 2.50 07/19/16 11:16 95 3.00 07/19/16 09:00 Room Air 07/19/16 08:29 92 3.00 07/19/16 08:00 98.2 93 16 132/87 96 Nasal Cannula 2.50 07/19/16 04:00 99.8 101 20 135/75 97 Nasal Cannula 2.50 07/19/16 00:00 100.8 100 16 134/82 94 Nasal Cannula 2.50 07/18/16 21:00 Nasal Cannula 2.00 07/18/16 20:00 99.1 97 20 136/79 96 Nasal Cannula 2.50 I & O 07/19/16 07:00 Intake Total 3240 ml Output Total 3100 ml Balance 140 ml Capillary Refill : Less Than 3 Seconds General Appearance: Chronically ill HEENT: PERRL/EOMI Neck: Normal Inspection, Non Tender Respiratory: Crackles Cardiovascular: Regular Rate, Rhythm Gastrointestinal: normal bowel sounds, non tender, soft Neurologic/Psychiatric: Alert, Oriented x3, No Motor/Sensory Deficits, Normal 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, 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 Lymphatic: Axilla Node Tender (L), Axilla Node Tender (R), Inguinal Node Tender (L), Inguinal Node Tender (R) Results Lab Laboratory Tests 07/19/16 05:26: White Blood Count 9.7, Red Blood Count 4.45, Hemoglobin 12.2L, Hematocrit 35L, Mean Corpuscular Volume 80, Mean Corpuscular Hemoglobin 27, Mean Corpuscular Hemoglobin Concent 35, Red Cell Distribution Width 13.6, Platelet Count 178, Mean Platelet Volume 10.5H, Neutrophils (%) (Auto) 70, Lymphocytes (%) (Auto) 15 , Monocytes (%) (Auto) 11, Eosinophils (%) (Auto) 2, Basophils (%) (Auto) 2, Neutrophils # (Auto) 6.8, Lymphocytes # (Auto) 1.5, Monocytes # (Auto) 1.0, Eosinophils # (Auto) 0.2, Basophils # (Auto) 0.2H, Sodium Level 134L, Potassium Level 4.2, Chloride Level 101, Carbon Dioxide Level 25, Anion Gap 8, Blood Urea Nitrogen 14, Creatinine 0.82, Estimat Glomerular Filtration Rate > 60, BUN/ Creatinine Ratio 17, Glucose Level 94, Calcium Level 8.0L, Total Bilirubin 1.5H , Aspartate Amino Transf (AST/SGOT) 28, Alanine Aminotransferase (ALT/SGPT) 30, Alkaline Phosphatase 203H, Total Protein 6.4, Albumin 2.8L 07/19/16 13:27: B-Type Natriuretic Peptide 19.4 Microbiology 07/15/16 Blood Culture - Preliminary, Resulted No growth 07/15/16 Virus Culture - Preliminary, Resulted 07/16/16 MRSA Screen - Final, Complete MRSA not isolated Assessment/Plan Assessment/Plan Assess & Plan/Chief Complaint 1. Right lower lobe infiltrate/early pneumonia Continue IV ceftriaxone; follow-up sputum culture and sensitivity 2. 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 a. Schedule bone marrow aspiration and biopsy in a.m.(when tech is available). Hold Lovenox. b. Lumbar puncture done in the emergency room. CSF cytology is pending; CSF cell count showing only 1 WBC; CSF chemistries unremarkable. 3. History of [place] Spotted fever--receiving IV doxycycline; patient has a positive IgG titer but IgM titer is negative indicating his infection is remote. 4. History of intermittent generalized maculopapular rash 5. Elevated LDH, beta 2 microglobulin, positive JOANNE, polyclonal gammopathy. All related to his lymphoproliferative disorder. Clinical Quality Measures DVT/VTE Risk/Contraindication: Risk Factor Score Per Nursin RFS Level Per Nursing on Admit: 1=Low/No VTE PPX KYLE SUAREZ MD Jul 19, 2016 19:41
[2016-07-19] MEDS: DOCUSATE SODIUM 100 MG (COLACE) CAP PO SCH (20:14)
[2016-07-19] MEDS: PIPERACILLIN SODIUM/TAZOBACTAM 4.5 GM in NS (IVPB) 100 ML IV SCH (20:14)
[2016-07-19] MEDS: MELATONIN 3 MG TABLET PO SCH (22:00)
[2016-07-20] MEDS: PIPERACILLIN SODIUM/TAZOBACTAM 4.5 GM in NS (IVPB) 100 ML IV SCH ×3 (03:55→20:33)
[2016-07-20] MEDS: HYDROcodone/APAP 5 MG/325 MG (LORTAB) TAB PO PRN ×3 (04:13→20:33)
[2016-07-20 04:19] VITALS: BP 150/82
[2016-07-20 05:09] LABS: BASOPHILS # (AUTO) 0.2 10^3/uL (0.0-0.1); BASOPHILS % (AUTO) 1 % (0-10); EOSINOPHILS # (AUTO) 0.1 10^3/uL (0.0-0.3); EOSINOPHILS % (AUTO) 1 % (0-10); LYMPHOCYTES # (AUTO) 1.3 X 10^3 (1.0-4.0); LYMPHOCYTES % (AUTO) 12 % (12-44); MEAN CORPUSCULAR HEMOGLOBIN 27 PG (25-34); MEAN CORPUSCULAR HGB CONC 34 G/DL (32-36); MEAN CORPUSCULAR VOLUME 80 FL (80-99); MEAN PLATELET VOLUME 11.4 FL (7.4-10.4); MONOCYTES # (AUTO) 1.2 X 10^3 (0.0-1.0); MONOCYTES % (AUTO) 12 % (0-12); NEUTROPHILS # (AUTO) 7.7 X 10^3 (1.8-7.8); NEUTROPHILS % (AUTO) 74 % (42-75); PLATELET COUNT 177 10^3/uL (130-400); RED BLOOD COUNT 4.51 10^6/uL (4.35-5.85); RED CELL DISTRIBUTION WIDTH 13.6 % (10.0-14.5); RETICULOCYTE % 0.74 % (0.50-2.40); WHITE BLOOD COUNT 10.5 10^3/uL (4.3-11.0)
[2016-07-20 05:33] LABS: BAND NEUTROPHILS 1 %; EOSINOPHILS % (MANUAL) 0 %; LYMPHOCYTES % (MANUAL) 4 %; NEUTROPHILS % (MANUAL) 82 %; REACTIVE LYMPHOCYTES 8 %
[2016-07-20 05:34] LABS: ALANINE AMINOTRANSFERASE 37 U/L (0-55); ALBUMIN 2.8 G/DL (3.2-4.5); ANION GAP 9 MMOL/L (5-14); ANISOCYTOSIS SLIGHT; ASPARTATE AMINO TRANSFERASE 34 U/L (5-34); BILIRUBIN,TOTAL 1.7 MG/DL (0.1-1.0); BLOOD UREA NITROGEN 13 MG/DL (7-18); BUN/CREATININE RATIO 14; CALCIUM 8.3 MG/DL (8.5-10.1); CARBON DIOXIDE 28 MMOL/L (21-32); CHLORIDE 97 MMOL/L (98-107); GFR ESTIMATED > 60; GLUCOSE 100 MG/DL (70-105); SODIUM 134 MMOL/L (135-145); TOTAL PROTEIN 6.6 G/DL (6.4-8.2)
[2016-07-20] MEDS: ONDANSETRON 4 MG/2 ML (SDV) Z0FRAN IV PRN ×2 (05:38→15:52)
[2016-07-20] MEDS: DOXYCYCLINE 100 MG (VIBRAMYCIN) TABLET PO SCH ×2 (06:41→17:13)
[2016-07-20] MEDS: PANTOPRAZOLE 40 MG (PROTONIX) TAB PO SCH (06:41)
[2016-07-20] MEDS: RT-ALBUTEROL SULF 2.5 MG/3 ML PRE-MIX VIAL IH SCH ×4 (07:19→18:51)
[2016-07-20 08:00] VITALS: BP 129/79
[2016-07-20] MEDS: DOCUSATE SODIUM 100 MG (COLACE) CAP PO SCH ×2 (08:04→20:33)
[2016-07-20] MEDS: diphenhydrAMINE 25 MG TAB (BENADRYL) PO PRN ×2 (08:04→18:56)
--- NOTE | 2016-07-20 10:48 | Progress Note-Hospitalist ---
Progress Note Progress Notes/Assess & Plan Date Seen 07/20/16 Diagonsis/Assessment & Plan Chart Review: Max fever 101.8, WBC 10.5, CMP normal except AP 249, Reviewed Oncology evaluation, Will perform bone marrow biopsy, ABX includes Zosyn and Doxy Patient Interview: Pt states pt is doing better this morning. Pt fever went down this morning. Pt has been sleeping well this morning. Pt states pt had a large BM this morning. Pt will have bone marrow biopsy performed in the next few days or go to [facility]. Scribed by Sj Rios under the direct supervision of Dr. Crockett. Vitals stable, chronically ill, fatigued, at bedside, sleepy Regular rate and rhythm, coarse breath sounds all sevilla and coughing frequently during deep breaths No edema Rash noted Lymphadenopathy cervical posterior inguinal and axilla noted Laboratory Tests 07/20/16 04:17 Assessment per [facility]: 51 yo M with + PCR for remote [place] Spotted Fever placed on empiric Doxy and then T cell lymphoma dx on node biopsy Plan Acute Shortness of breath due to worsened pneumonia placed on Zosyn Diffuse Adenopathy due to Lymphoma [place] Spotted Fever remote infection on titer Elevated Alk Phos Elevated Bilirubin Fever Plan: Zosyn Bone marrow Tx to [facility]? Scribed by Sj Rios under the direct supervision of Dr. Crockett. AGGIE CROCKETT DO Jul 20, 2016 10:48
[2016-07-20 12:00] VITALS: BP 142/84
--- NOTE | 2016-07-20 13:43 | Progress Note ---
Subjective Subjective/Events-last exam Patient resting in bed. at bedside. Patient is alert and oriented 3. No signs of distress noted Objective Exam Vital Signs Date Time Temp Pulse Resp B/P (MAP) Pulse Ox O2 Delivery O2 Flow Rate FiO2 07/20/16 12:00 98.7 102 20 142/84 95 Nasal Cannula 2.50 07/20/16 11:06 92 3.00 07/20/16 08:00 98.8 106 20 129/79 95 Nasal Cannula 2.50 07/20/16 07:20 94 3.00 07/20/16 05:34 99.9 07/20/16 04:19 101.8 102 18 150/82 94 Nasal Cannula 2.50 07/19/16 23:21 100.6 102 18 134/83 96 Nasal Cannula 2.50 07/19/16 20:53 94 07/19/16 20:00 100.2 98 20 149/88 98 Nasal Cannula 2.50 07/19/16 16:46 100.4 100 20 136/84 97 Nasal Cannula 2.50 07/19/16 14:53 94 3.00 I & O 07/20/16 07:00 Intake Total 2270 ml Output Total 4035 ml Balance -1765 ml Capillary Refill : Less Than 3 Seconds General Appearance: Chronically ill HEENT: PERRL/EOMI Neck: Normal Inspection, Non Tender Respiratory: No Accessory Muscle Use, No Respiratory Distress, Crackles Cardiovascular: Regular Rate, Rhythm Extremity: Normal Capillary Refill, Normal Inspection, Non Tender, No Pedal Edema Neurologic/Psychiatric: Alert, Oriented x3, No Motor/Sensory Deficits, Normal 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6 10.0-14.5 % Platelet Count 178 177 130-400 10^3/uL Mean Platelet Volume 10.5 H 11.4 H 7.4-10.4 FL Neutrophils (%) (Auto) 70 74 42-75 % Lymphocytes (%) (Auto) 15 12 12-44 % Monocytes (%) (Auto) 11 12 0-12 % Eosinophils (%) (Auto) 2 1 0-10 % Basophils (%) (Auto) 2 1 0-10 % Neutrophils # (Auto) 6.8 7.7 1.8-7.8 X 10^3 Lymphocytes # (Auto) 1.5 1.3 1.0-4.0 X 10^3 Monocytes # (Auto) 1.0 1.2 H 0.0-1.0 X 10^3 Eosinophils # (Auto) 0.2 0.1 0.0-0.3 10^3/uL Basophils # (Auto) 0.2 H 0.2 H 0.0-0.1 10^3/uL Sodium Level 134 L 134 L 135-145 MMOL/L Potassium Level 4.2 4.0 3.6-5.0 MMOL/L Chloride Level 101 97 L 98-107 MMOL/L Carbon Dioxide Level 25 28 21-32 MMOL/L Anion Gap 8 9 5-14 MMOL/L Blood Urea Nitrogen 14 13 7-18 MG/DL Creatinine 0.82 0.90 0.60-1.30 MG/DL Estimat Glomerular Filtration Rate > 60 > 60 BUN/Creatinine Ratio 17 14 Glucose Level 94 100 70-105 MG/DL Calcium Level 8.0 L 8.3 L 8.5-10.1 MG/DL Total Bilirubin 1.5 H 1.7 H 0.1-1.0 MG/DL Aspartate Amino Transf (AST/SGOT) 28 34 5-34 U/L Alanine Aminotransferase (ALT/SGPT) 30 37 0-55 U/L Alkaline Phosphatase 203 H 249 H 40-136 U/L Total Protein 6.4 6.6 6.4-8.2 G/DL Albumin 2.8 L 2.8 L 3.2-4.5 G/DL Uric Acid 5.9 2.6-7.2 MG/DL B-Type Natriuretic Peptide 19.4 <100.0 PG/ML Neutrophils % (Manual) 82 % Lymphocytes % (Manual) 4 % Monocytes % (Manual) 5 % Eosinophils % (Manual) 0 % Band Neutrophils 1 % Reactive Lymphocytes 8 % Anisocytosis SLIGHT Absolute Reticulocyte Count 33 24-90 10e9/L Percent Reticulocyte Count 0.74 0.50-2.40 % Laboratory Tests 07/20/16 04:17: White Blood Count 10.5, Red Blood Count 4.51, Hemoglobin 12.3L, Hematocrit 36L, Mean Corpuscular Volume 80, Mean Corpuscular Hemoglobin 27, Mean Corpuscular Hemoglobin Concent 34, Red Cell Distribution Width 13.6, Platelet Count 177, Mean Platelet Volume 11.4H, Neutrophils (%) (Auto) 74, Lymphocytes (%) (Auto) 12 , Monocytes (%) (Auto) 12, Eosinophils (%) (Auto) 1, Basophils (%) (Auto) 1, Neutrophils # (Auto) 7.7, Lymphocytes # (Auto) 1.3, Monocytes # (Auto) 1.2H, Eosinophils # (Auto) 0.1, Basophils # (Auto) 0.2H, Neutrophils % (Manual) 82, Lymphocytes % (Manual) 4, Monocytes % (Manual) 5, Eosinophils % (Manual) 0, Band Neutrophils 1, Reactive Lymphocytes 8, Anisocytosis SLIGHT, Absolute Reticulocyte Count 33, Percent Reticulocyte Count 0.74, Sodium Level 134L, Potassium Level 4.0, Chloride Level 97L, Carbon Dioxide Level 28, Anion Gap 9, Blood Urea Nitrogen 13, Creatinine 0.90, Estimat Glomerular Filtration Rate > 60 , BUN/Creatinine Ratio 14, Glucose Level 100, Calcium Level 8.3L, Total Bilirubin 1.7H, Aspartate Amino Transf (AST/SGOT) 34, Alanine Aminotransferase ( ALT/SGPT) 37, Alkaline Phosphatase 249H, Total Protein 6.6, Albumin 2.8L Microbiology 07/15/16 Blood Culture - Preliminary, Resulted No growth 07/15/16 Virus Culture - Preliminary, Resulted 07/16/16 MRSA Screen - Final, Complete MRSA not isolated Assessment/Plan Assessment/Plan Assessment/Plan s/p excisional lymph node biopsy assessment of incision sites, wound edges are well aligned. Sutures intact. No signs of drainage, redness or warmth. No signs of infection. Clinical Quality Measures DVT/VTE Risk/Contraindication: Risk Factor Score Per Nursin RFS Level Per Nursing on Admit: 1=Low/No VTE PPX JONATHAN WHITING APRN Jul 20, 2016 13:43
--- NOTE | 2016-07-20 14:26 | Progress Note (SOAP) ---
Subjective Subjective/Events-last exam Continues to report night sweats and fever; Objective Exam Vital Signs Date Time Temp Pulse Resp B/P (MAP) Pulse Ox O2 Delivery O2 Flow Rate FiO2 07/20/16 12:00 98.7 102 20 142/84 95 Nasal Cannula 2.50 07/20/16 11:06 92 3.00 07/20/16 08:00 98.8 106 20 129/79 95 Nasal Cannula 2.50 07/20/16 07:20 94 3.00 07/20/16 05:34 99.9 07/20/16 04:19 101.8 102 18 150/82 94 Nasal Cannula 2.50 07/19/16 23:21 100.6 102 18 134/83 96 Nasal Cannula 2.50 07/19/16 20:53 94 07/19/16 20:00 100.2 98 20 149/88 98 Nasal Cannula 2.50 07/19/16 16:46 100.4 100 20 136/84 97 Nasal Cannula 2.50 07/19/16 14:53 94 3.00 I & O 07/20/16 07:00 Intake Total 2270 ml Output Total 4035 ml Balance -1765 ml Capillary Refill : Less Than 3 Seconds General Appearance: Chronically ill HEENT: PERRL/EOMI Neck: Full Range of Motion, Non Tender, Supple Respiratory: Crackles Cardiovascular: Regular Rate, Rhythm, No Gallop, No JVD Gastrointestinal: normal bowel sounds, non tender, soft, no pulsatile mass Extremity: Non Tender, No Calf Tenderness Skin: Rash (maculopapular rash on posterior thorax) Results Lab Laboratory Tests 07/20/16 04:17: White Blood Count 10.5, Red Blood Count 4.51, Hemoglobin 12.3L, Hematocrit 36L, Mean Corpuscular Volume 80, Mean Corpuscular Hemoglobin 27, Mean Corpuscular Hemoglobin Concent 34, Red Cell Distribution Width 13.6, Platelet Count 177, Mean Platelet Volume 11.4H, Neutrophils (%) (Auto) 74, Lymphocytes (%) (Auto) 12 , Monocytes (%) (Auto) 12, Eosinophils (%) (Auto) 1, Basophils (%) (Auto) 1, Neutrophils # (Auto) 7.7, Lymphocytes # (Auto) 1.3, Monocytes # (Auto) 1.2H, Eosinophils # (Auto) 0.1, Basophils # (Auto) 0.2H, Neutrophils % (Manual) 82, Lymphocytes % (Manual) 4, Monocytes % (Manual) 5, Eosinophils % (Manual) 0, Band Neutrophils 1, Reactive Lymphocytes 8, Anisocytosis SLIGHT, Absolute Reticulocyte Count 33, Percent Reticulocyte Count 0.74, Sodium Level 134L, Potassium Level 4.0, Chloride Level 97L, Carbon Dioxide Level 28, Anion Gap 9, Blood Urea Nitrogen 13, Creatinine 0.90, Estimat Glomerular Filtration Rate > 60 , BUN/Creatinine Ratio 14, Glucose Level 100, Calcium Level 8.3L, Total Bilirubin 1.7H, Aspartate Amino Transf (AST/SGOT) 34, Alanine Aminotransferase ( ALT/SGPT) 37, Alkaline Phosphatase 249H, Total Protein 6.6, Albumin 2.8L Microbiology 07/15/16 Blood Culture - Preliminary, Resulted No growth 07/15/16 Virus Culture - Preliminary, Resulted 07/16/16 MRSA Screen - Final, Complete MRSA not isolated Radiology CT scan chest done in 07/19/16:IMPRESSION: 1. The appearance of the chest has worsened since the prior study as there has been a generalized increase in the adenopathy involving the thoracic and the visualized upper abdomen. The spleen is also somewhat larger than on the prior exam. 2. Bibasilar pneumonia/atelectasis and bilateral pleural effusions have also developed. 3. The fluid about the gallbladder is nonspecific, but the possibility of acute cholecystitis should be considered. Assessment/Plan Assessment/Plan Assess & Plan/Chief Complaint 1. Right lower lobe infiltrate/early pneumonia Continue IV ceftriaxone; follow-up sputum culture and sensitivity 2. 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 a. Bone marrow aspiration and biopsy done today and results are pending. b. Lumbar puncture done in the emergency room. CSF cytology is pending; CSF cell count showing only 1 WBC; CSF chemistries unremarkable. c. Complete antibiotics and discharged to home. Outpatient visit to be arranged with the [facility] bone marrow transplant service with high dose chemotherapy to follow. Initial cycle of modified CHOEP to be delivered at via [facility] during current admission. d. Allopurinol 600mg in divided doses initiated today in anticipation of treating him on 07/22/16 or 07/23/16. 3. History of [place] Spotted fever--receiving IV doxycycline; patient has a positive IgG titer but IgM titer is negative indicating his infection is remote. 4. History of intermittent generalized maculopapular rash-related to patient' s AITL. 5. Elevated LDH, beta 2 microglobulin, positive JOANNE, polyclonal gammopathy. All related to his T-cell lymphoma, AITL. Clinical Quality Measures DVT/VTE Risk/Contraindication: Risk Factor Score Per Nursin RFS Level Per Nursing on Admit: 1=Low/No VTE PPX KYLE SUAREZ MD Jul 20, 2016 14:26
[2016-07-20 16:15] VITALS: BP_SYST 123; BP_SYST 129; BP_DIAS 78; BP_DIAS 81
--- NOTE | 2016-07-20 16:27 | Progress Note ---
Subjective Subjective/Events-last exam Patient with fever and not feeling well. Ate lunch. Slight abdominal discomfort after eating. No new complaints. Objective Exam Vital Signs Date Time Temp Pulse Resp B/P (MAP) Pulse Ox O2 Delivery O2 Flow Rate FiO2 07/20/16 16:15 99.0 102 20 123/78 95 Nasal Cannula 2.50 07/20/16 16:15 99.1 102 16 129/81 95 Room Air 07/20/16 15:23 93 3.00 07/20/16 12:00 98.7 102 20 142/84 95 Nasal Cannula 2.50 07/20/16 11:06 92 3.00 07/20/16 08:00 98.8 106 20 129/79 95 Nasal Cannula 2.50 07/20/16 07:20 94 3.00 07/20/16 05:34 99.9 07/20/16 04:19 101.8 102 18 150/82 94 Nasal Cannula 2.50 07/19/16 23:21 100.6 102 18 134/83 96 Nasal Cannula 2.50 07/19/16 20:53 94 07/19/16 20:00 100.2 98 20 149/88 98 Nasal Cannula 2.50 07/19/16 16:46 100.4 100 20 136/84 97 Nasal Cannula 2.50 I & O 07/20/16 07:00 Intake Total 2270 ml Output Total 4035 ml Balance -1765 ml Capillary Refill : Less Than 3 Seconds General Appearance: Chronically ill HEENT: PERRL/EOMI Neck: Full Range of Motion, Non Tender, Supple, Other (incision c/d/i) Respiratory: Crackles, Other (incision c/d/i) Cardiovascular: Regular Rate, Rhythm Gastrointestinal: normal bowel sounds, non tender, soft, no pulsatile mass Extremity: Non Tender, No Calf Tenderness Neurologic/Psychiatric: Alert, Oriented x3, No Motor/Sensory Deficits, Normal 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/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, 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 Norm as Tested Skin: Rash (maculopapular rash) Lymphatic: Axilla Node Tender (L), Axilla Node Tender (R), Inguinal Node Tender (L), Inguinal Node Tender (R), Other (cervical adenopathy) Results Lab Laboratory Tests 07/20/16 04:17: White Blood Count 10.5, Red Blood Count 4.51, Hemoglobin 12.3L, Hematocrit 36L, Mean Corpuscular Volume 80, Mean Corpuscular Hemoglobin 27, Mean Corpuscular Hemoglobin Concent 34, Red Cell Distribution Width 13.6, Platelet Count 177, Mean Platelet Volume 11.4H, Neutrophils (%) (Auto) 74, Lymphocytes (%) (Auto) 12 , Monocytes (%) (Auto) 12, Eosinophils (%) (Auto) 1, Basophils (%) (Auto) 1, Neutrophils # (Auto) 7.7, Lymphocytes # (Auto) 1.3, Monocytes # (Auto) 1.2H, Eosinophils # (Auto) 0.1, Basophils # (Auto) 0.2H, Neutrophils % (Manual) 82, Lymphocytes % (Manual) 4, Monocytes % (Manual) 5, Eosinophils % (Manual) 0, Band Neutrophils 1, Reactive Lymphocytes 8, Anisocytosis SLIGHT, Absolute Reticulocyte Count 33, Percent Reticulocyte Count 0.74, Sodium Level 134L, Potassium Level 4.0, Chloride Level 97L, Carbon Dioxide Level 28, Anion Gap 9, Blood Urea Nitrogen 13, Creatinine 0.90, Estimat Glomerular Filtration Rate > 60 , BUN/Creatinine Ratio 14, Glucose Level 100, Calcium Level 8.3L, Total Bilirubin 1.7H, Aspartate Amino Transf (AST/SGOT) 34, Alanine Aminotransferase ( ALT/SGPT) 37, Alkaline Phosphatase 249H, Total Protein 6.6, Albumin 2.8L Microbiology 07/15/16 Blood Culture - Final, Complete No growth 07/15/16 Virus Culture - Preliminary, Resulted 07/16/16 MRSA Screen - Final, Complete MRSA not isolated Assessment/Plan Assessment/Plan Assessment/Plan Right lower lobe infiltrate/early pneumonia, AITL, [place] spotted fever. Asked to place port for treatment. I discussed risks and benefits with patient and family. They wish to proceed. NPO after midnight. Consent for port placement. To OR tomorrow for port placement. Clinical Quality Measures DVT/VTE Risk/Contraindication: Risk Factor Score Per Nursin RFS Level Per Nursing on Admit: 1=Low/No VTE PPX MARIELY HENSLEY DO Jul 20, 2016 4:27 pm
[2016-07-20] MEDS: ALLOPURINOL 300 MG (ZYLOPRIM) TAB PO SCH (17:13)
[2016-07-20] MEDS: fentaNYL INJECTION 100 MCG/2 ML AMP IVP PRN (17:58)
[2016-07-20 20:29] VITALS: BP 139/75
[2016-07-20] MEDS: MELATONIN 3 MG TABLET PO SCH (20:33)
[2016-07-21] MEDS: fentaNYL INJECTION 100 MCG/2 ML AMP IVP PRN ×4 (00:11→14:33)
[2016-07-21 00:57] VITALS: BP 110/78
[2016-07-21 04:45] VITALS: BP 133/78
[2016-07-21] MEDS: PIPERACILLIN SODIUM/TAZOBACTAM 4.5 GM in NS (IVPB) 100 ML IV SCH ×2 (04:53→11:13)
[2016-07-21] MEDS: RT-ALBUTEROL SULF 2.5 MG/3 ML PRE-MIX VIAL IH SCH ×2 (07:17→10:46)
[2016-07-21] MEDS ORDERED: LIDOCAINE 1% INJ 20 ML (XYLOCAINE) VIAL ONE (07:18)
[2016-07-21] MEDS ORDERED: 0.9% SODIUM CHLORIDE PF INJ 20 ML VIAL ONE (07:18)
[2016-07-21] MEDS ORDERED: BUPIVACAINE 0.5% 30 ML (SENSORCAINE) VIAL ONE (07:18)
[2016-07-21] MEDS ORDERED: HEParin (CENTRAL IV FLUSH) 500 UNIT/5 ML SYR ONE (07:18)
[2016-07-21] MEDS ORDERED: MIDAZOLAM 2 MG/2 ML (VERSED) VIAL ONE (07:22)
[2016-07-21] MEDS ORDERED: fentaNYL INJECTION 100 MCG/2 ML AMP ONE (07:23)
--- NOTE | 2016-07-21 07:34 | Pulmonary Progress Note ---
Subjective Subjective/Events-last exam Pt is still running fever. Exam Exam Vital Signs Date Time Temp Pulse Resp B/P (MAP) Pulse Ox O2 Delivery O2 Flow Rate FiO2 07/21/16 07:17 92 3.00 07/21/16 04:45 99.5 103 16 133/78 97 Room Air 07/21/16 00:57 98.8 89 16 110/78 96 Room Air 07/20/16 21:00 Nasal Cannula 2.50 07/20/16 20:29 100.3 110 20 139/75 97 Room Air 07/20/16 18:52 92 2.00 07/20/16 16:15 99.0 102 20 123/78 95 Nasal Cannula 2.50 07/20/16 16:15 99.1 102 16 129/81 95 Room Air 07/20/16 15:23 93 3.00 07/20/16 12:00 98.7 102 20 142/84 95 Nasal Cannula 2.50 07/20/16 11:06 92 3.00 07/20/16 08:00 98.8 106 20 129/79 95 Nasal Cannula 2.50 I & O 07/21/16 07:00 Intake Total 2400 ml Output Total 1250 ml Balance 1150 ml General Appearance: Chronically ill HEENT: PERRL/EOMI Neck: Full Range of Motion, Non Tender, Supple, Other (incision c/d/i) Respiratory: Crackles, Other (incision c/d/i) Cardiovascular: Regular Rate, Rhythm Capillary Refill: Less Than 3 Seconds Gastrointestinal: normal bowel sounds, non tender, soft, no pulsatile mass Extremity: Non Tender, No Calf Tenderness Neurologic/Psychiatric: Alert, Oriented x3, No Motor/Sensory Deficits, Normal 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 -D/C abx Bilateral pleural effusion with atelectasis r/o PNA -zosyn -SVNs Clinical Quality Measures DVT/VTE Risk/Contraindication: Risk Factor Score Per Nursin RFS Level Per Nursing on Admit: 1=Low/No VTE PPX JIN HERNANDEZ DO Jul 21, 2016 07:34
--- NOTE | 2016-07-21 07:44 | Progress Note-Pre Operative ---
Pre-Operative Progress Note H&P Reviewed The H&P was reviewed, patient examined and no changes noted. Date H&P Reviewed: Jul 15, 2016 Time H&P Reviewed: 07:44 Pre-Operative Diagnosis: KRYSTALL MARIELY HENSLEY DO Jul 21, 2016 07:44
--- NOTE | 2016-07-21 08:48 | Progress Note-Post Operative ---
Post-Operative Progess Note Surgeon (s)/Law Firm Administrator (s) Surgeon MARIELY HENSLEY DO Law Firm Administrator: 0 Pre-Operative Diagnosis AITL Post-Operative Diagnosis same Post-Op Procedure Note Date of Procedure: Jul 21, 2016 Name of Procedure Performed: power port placement rij using u/s guidance Description of the Procedure: see note Findings of the Procedure see note Estimated blood loss (mL): minimal Specimen(s) collected/removed none MARIELY HENSLEY DO Jul 21, 2016 8:48 am
[2016-07-21] MEDS ORDERED: LACTATED RINGERS 1,000 ML IV ONE ×3 (08:51→09:40)
[2016-07-21] MEDS ORDERED: proPOfol 200 MG/20 ML (DIPRIVAN) VIAL IV ONE (08:51)
[2016-07-21] MEDS ORDERED: SEVOFLURANE (ULTANE) 15 ML INHAL SOLN ONE ×2 (08:51→08:56)
[2016-07-21] MEDS ORDERED: ONDANSETRON 4 MG/2 ML (SDV) Z0FRAN ONE (08:51)
[2016-07-21] MEDS ORDERED: LIDOCAINE PF 2% 10 ML (XYLOCAINE) AMP ONE (08:51)
[2016-07-21] MEDS ORDERED: ONDANSETRON 4 MG/2 ML (SDV) Z0FRAN IV ONE (09:15)
[2016-07-21] MEDS ORDERED: morphine INJ 10 MG/ML 1ML (SYR OR VIAL) IV PRN (09:15)
[2016-07-21] MEDS ORDERED: fentaNYL INJECTION 100 MCG/2 ML AMP IV PRN (09:15)
--- NOTE | 2016-07-21 09:23 | Diagnostic Imaging Report ---
Fluoroscopy. INDICATION: Power port insertion. Fluoroscopic assistance was provided for Dr. Amos during his power port insertion procedure. 115.3 seconds of fluoroscopy time was utilized. 2 spot films of the thorax were received. There is a central venous catheter in place on the right. The tip of the catheter overlies the mid/distal superior vena cava. IMPRESSION: 1. Fluoroscopic assistance was provided for Dr. Amos during his power port placement procedure. 2. A followup exam would be recommended for continued evaluation. Dictated by: Dictated on workstation # [id number]
--- NOTE | 2016-07-21 09:36 | Diagnostic Imaging Report ---
Portable AP chest at 9:14 AM. INDICATION: Chest pain. As noted on the fluoroscopic exam performed earlier today, there is now a right-sided Port-A-Cath in place. The tip of the catheter overlies the distal superior vena cava and seems to be in good position. There is no sign of a pneumothorax. The overall appearance of the chest itself has not changed significantly since 07/19/2016. The heart is stable in size. There is still atelectasis/infiltrate involving both lung bases, particularly the right lung base. The left lower lobe may be slightly better aerated than on the prior exam. The mediastinum is not widened. The osseous structures are intact. IMPRESSION: 1. There has been interval insertion of a right-sided Port-A-Cath without apparent complication. 2. The overall appearance of the chest has not changed significantly otherwise. The left lung base may be slightly better aerated, however. Dictated by: Dictated on workstation # [id number]
[2016-07-21 09:55] VITALS: BP 114/63
[2016-07-21] MEDS: DOXYCYCLINE 100 MG (VIBRAMYCIN) TABLET PO SCH (10:16)
[2016-07-21] MEDS: PANTOPRAZOLE 40 MG (PROTONIX) TAB PO SCH (10:16)
[2016-07-21] MEDS: DOCUSATE SODIUM 100 MG (COLACE) CAP PO SCH (10:16)
[2016-07-21 10:17] LABS: BASOPHILS # (AUTO) 0.1 10^3/uL (0.0-0.1); BASOPHILS % (AUTO) 1 % (0-10); EOSINOPHILS # (AUTO) 0.1 10^3/uL (0.0-0.3); EOSINOPHILS % (AUTO) 1 % (0-10); LYMPHOCYTES # (AUTO) 1.4 X 10^3 (1.0-4.0); LYMPHOCYTES % (AUTO) 13 % (12-44); MEAN CORPUSCULAR HEMOGLOBIN 27 PG (25-34); MEAN CORPUSCULAR HGB CONC 34 G/DL (32-36); MEAN CORPUSCULAR VOLUME 81 FL (80-99); MEAN PLATELET VOLUME 12.6 FL (7.4-10.4); MONOCYTES % (AUTO) 9 % (0-12); NEUTROPHILS % (AUTO) 76 % (42-75); PLATELET COUNT 91 10^3/uL (130-400); RED BLOOD COUNT 4.23 10^6/uL (4.35-5.85); RED CELL DISTRIBUTION WIDTH 13.6 % (10.0-14.5); WHITE BLOOD COUNT 10.5 10^3/uL (4.3-11.0)
[2016-07-21] MEDS: ALLOPURINOL 300 MG (ZYLOPRIM) TAB PO SCH (10:17)
[2016-07-21 10:38] LABS: ALANINE AMINOTRANSFERASE 27 U/L (0-55); ALBUMIN 2.5 G/DL (3.2-4.5); ANION GAP 7 MMOL/L (5-14); ASPARTATE AMINO TRANSFERASE 26 U/L (5-34); BILIRUBIN,TOTAL 1.8 MG/DL (0.1-1.0); BLOOD UREA NITROGEN 16 MG/DL (7-18); BUN/CREATININE RATIO 17; CALCIUM 7.8 MG/DL (8.5-10.1); CARBON DIOXIDE 27 MMOL/L (21-32); CHLORIDE 99 MMOL/L (98-107); CREATININE SERUM 0.96 MG/DL (0.60-1.30); GFR ESTIMATED > 60; GLUCOSE 99 MG/DL (70-105); POTASSIUM 4.6 MMOL/L (3.6-5.0); SODIUM 133 MMOL/L (135-145)
[2016-07-21] MEDS: diphenhydrAMINE 25 MG TAB (BENADRYL) PO PRN (11:14)
--- NOTE | 2016-07-21 11:28 | Progress Note-Hospitalist ---
Progress Note Progress Notes/Assess & Plan Date Seen 07/21/16 Diagonsis/Assessment & Plan Chart Review: Max fever 100.3, Labs pending Dr. Powers Review: Pt is having port placed today by Dr. Amos. Pt has no insurance. Pt has an application pending for Medicaid. [facility] is moving slowly. Pt best option is 24 hour infusion which requires a larger facility. Has been in contact with the director of . Pt may have to go through chemotherapy staring here. Pharmacy Review: Bone marrow biopsy was done yesterday. 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 SW Review: Pt may not get well enough for an outpatient DC to . Pt is starting to have abdominal pain. Patient Interview: Pt states he just had port placed by Dr. Amos. Pt states he still has abdominal pain. Pt was told why abdominal pain was present. Pt states his pain meds are helping him. Physical exam was stable. Pt lungs sound clear. Pt states he feels funky currently. Pt was encouraged to keep active and ambulate the halls to get his strength up. Pt states he has been ambulating and exercising his legs. Pt states he gets winded quickly. Pt states he just drank and is ready to eat now. Scribed by Sj Rios under the direct supervision of Dr. Cruz. 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 Scribed by Sj Rios under the direct supervision of Dr. Cruz. AGGIE CRUZ DO Jul 21, 2016 11:28
[2016-07-21] MEDS ORDERED: HYDR-3812 PO (11:55)
--- NOTE | 2016-07-21 11:58 | Discharge Summary-Hospitalist ---
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 Powers Review: Pt is having port placed today by Dr. Amos. Pt has no insurance. Pt has an application pending for Medicaid. [facility] is moving slowly. Pt best option is 24 hour infusion which requires a larger facility. Has been in contact with the director of . Pt may have to go through chemotherapy staring here. Pharmacy Review: Bone marrow biopsy was done yesterday. 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 SW Review: Pt may not get well enough for an outpatient DC to . Pt is starting to have abdominal pain. Patient Interview: Pt states he just had port placed by Dr. Amos. Pt states he still has abdominal pain. Pt was told why abdominal pain was present. Pt states his pain meds are helping him. Physical exam was stable. Pt lungs sound clear. Pt states he feels funky currently. Pt was encouraged to keep active and ambulate the halls to get his strength up. Pt states he has been ambulating and exercising his legs. Pt states he gets winded quickly. Pt states he just drank and is ready to eat now. Scribed by Sj Rios under the direct supervision of Dr. Cruz. 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 Scribed by Sj Rios under the direct supervision of Dr. Cruz. Reason Hospital Visit/Course Progress Notes/Assess & Plan Date Seen 07/21/16 Diagonsis/Assessment & Plan Chart Review: Max fever 100.3, Labs pending Dr. Powers Review: Pt is having port placed today by Dr. Amos. Pt has no insurance. Pt has an application pending for Medicaid. [facility] is moving slowly. Pt best option is 24 hour infusion which requires a larger facility. Has been in contact with the director of . Pt may have to go through chemotherapy staring here. Pharmacy Review: Bone marrow biopsy was done yesterday. 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 SW Review: Pt may not get well enough for an outpatient DC to . Pt is starting to have abdominal pain. Patient Interview: Pt states he just had port placed by Dr. Amos. Pt states he still has abdominal pain. Pt was told why abdominal pain was present. Pt states his pain meds are helping him. Physical exam was stable. Pt lungs sound clear. Pt states he feels funky currently. Pt was encouraged to keep active and ambulate the halls to get his strength up. Pt states he has been ambulating and exercising his legs. Pt states he gets winded quickly. Pt states he just drank and is ready to eat now. Scribed by Sj Rios under the direct supervision of Dr. Cruz. 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 Scribed by Sj Rios under the direct supervision of Dr. Cruz. Plan per Dr. Powers after progress note was completed includes discharged today since overall stable lungs are clear and all the symptoms are from a lymphoma and will reportedly med for admission tomorrow and induction or bone marrow transplant at that time. Discharge Summary Discharge Physical Examination Allergies: Coded Allergies: No Known Drug Allergies (Unverified , 07/15/16) Vitals & I&Os Vital Signs Date Time Temp Pulse Resp B/P (MAP) Pulse Ox O2 Delivery O2 Flow Rate FiO2 07/21/16 10:46 94 3.00 07/21/16 09:55 98.5 90 20 114/63 Room Air Hospital Course Labs (last 24 hrs) Laboratory Tests 07/21/16 10:08: White Blood Count 10.5, Red Blood Count 4.23L, Hemoglobin 11.6L, Hematocrit 34L , Mean Corpuscular Volume 81, Mean Corpuscular Hemoglobin 27, Mean Corpuscular Hemoglobin Concent 34, Red Cell Distribution Width 13.6, Platelet Count 91L, Mean Platelet Volume 12.6H, Neutrophils (%) (Auto) 76H, Lymphocytes (%) (Auto) 13, Monocytes (%) (Auto) 9, Eosinophils (%) (Auto) 1, Basophils (%) (Auto) 1, Neutrophils # (Auto) 8.0H, Lymphocytes # (Auto) 1.4, Monocytes # (Auto) 1.0, Eosinophils # (Auto) 0.1, Basophils # (Auto) 0.1, Sodium Level 133L, Potassium Level 4.6, Chloride Level 99, Carbon Dioxide Level 27, Anion Gap 7, Blood Urea Nitrogen 16, Creatinine 0.96, Estimat Glomerular Filtration Rate > 60, BUN/ Creatinine Ratio 17, Glucose Level 99, Calcium Level 7.8L, Total Bilirubin 1.8H , Aspartate Amino Transf (AST/SGOT) 26, Alanine Aminotransferase (ALT/SGPT) 27, Alkaline Phosphatase 225H, Total Protein 6.0L, Albumin 2.5L Microbiology 07/15/16 Blood Culture - Final, Complete No growth 07/15/16 Virus Culture - Preliminary, Resulted 07/16/16 MRSA Screen - Final, Complete MRSA not isolated Pending Labs Laboratory Tests 07/21/16 10:08: White Blood Count 10.5, Red Blood Count 4.23, Hemoglobin 11.6, Hematocrit 34, Mean Corpuscular Volume 81, Mean Corpuscular Hemoglobin 27, Mean Corpuscular Hemoglobin Concent 34, Red Cell Distribution Width 13.6, Platelet Count 91, Mean Platelet Volume 12.6, Neutrophils (%) (Auto) 76, Lymphocytes (%) (Auto) 13 , Monocytes (%) (Auto) 9, Eosinophils (%) (Auto) 1, Basophils (%) (Auto) 1, Neutrophils # (Auto) 8.0, Lymphocytes # (Auto) 1.4, Monocytes # (Auto) 1.0, Eosinophils # (Auto) 0.1, Basophils # (Auto) 0.1, Sodium Level 133, Potassium Level 4.6, Chloride Level 99, Carbon Dioxide Level 27, Anion Gap 7, Blood Urea Nitrogen 16, Creatinine 0.96, Estimat Glomerular Filtration Rate > 60, BUN/ Creatinine Ratio 17, Glucose Level 99, Calcium Level 7.8, Total Bilirubin 1.8, Aspartate Amino Transf (AST/SGOT) 26, Alanine Aminotransferase (ALT/SGPT) 27, Alkaline Phosphatase 225, Total Protein 6.0, Albumin 2.5 Discharge Home Medications: Active Scripts Active Hydrocodon -Acetaminophen 5-325 (Hydrocodone/Acetaminophen) 1 Each Tablet 1 Tab PO Q4H PRN Reported Ibuprofen 200 Mg Tablet 600 Mg PO BID TAKES 3 (200 MG) TABLETS Melatonin 5 Mg Capsule 10 Mg PO HS TAKES 2 (5 MG) TABLETS Omeprazole 40 Mg Capsule.dr 40 Mg PO DAILY Doxycycline Hyclate 100 Mg Capsule 100 Mg PO BID FILLED 07/13/16 #28 FOR 1 14 DAY THERAPY Promethazine HCl 50 Mg Tablet 25 Mg PO Q8H PRN Instructions to patient/family Please see electonic discharge instructions given to patient. Clinical Quality Measures DVT/VTE Risk/Contraindication: Risk Factor Score Per Nursin RFS Level Per Nursing on Admit: 1=Low/No VTE PPX AGGIE CRUZ DO Jul 21, 2016 11:58
[2016-07-21 12:00] VITALS: BP 129/71
--- NOTE | 2016-07-21 13:12 | Progress Note (SOAP) ---
Subjective Subjective/Events-last exam Patient continues to complain of shortness of breath, fever, night sweats and reports some abdominal pain. I've spoken to the patient and his regarding conversation I had with the director of the bone marrow transplant service at [facility], Dr. Zander Fish, who has requested that the patient be discharged and he will arrange for evaluation at [facility] tomorrow to be followed by probable same day hospitalization and initiation of chemotherapy at [facility]. and patient are agreeable to discharge today along with plan to be seen by lymphoma specialist tomorrow at [facility]. Objective Exam Vital Signs Date Time Temp Pulse Resp B/P (MAP) Pulse Ox O2 Delivery O2 Flow Rate FiO2 07/21/16 12:36 0.00 07/21/16 12:00 98.6 99 24 129/71 94 Room Air 07/21/16 10:46 94 3.00 07/21/16 09:55 98.5 90 20 114/63 94 Room Air 07/21/16 07:17 92 3.00 07/21/16 04:45 99.5 103 16 133/78 97 Room Air 07/21/16 00:57 98.8 89 16 110/78 96 Room Air 07/20/16 21:00 Nasal Cannula 2.50 07/20/16 20:29 100.3 110 20 139/75 97 Room Air 07/20/16 18:52 92 2.00 07/20/16 16:15 99.0 102 20 123/78 95 Nasal Cannula 2.50 07/20/16 16:15 99.1 102 16 129/81 95 Room Air 07/20/16 15:23 93 3.00 I & O 07/21/16 07:00 Intake Total 2400 ml Output Total 1250 ml Balance 1150 ml Capillary Refill : Less Than 3 Seconds General Appearance: Chronically ill HEENT: PERRL/EOMI Neck: Full Range of Motion, Non Tender Respiratory: Decreased Breath Sounds Gastrointestinal: normal bowel sounds, non tender, soft Extremity: Normal Inspection, Non Tender, No Calf Tenderness Neurologic/Psychiatric: Alert, Oriented x3, No Motor/Sensory Deficits, Normal 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, 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 Lymphatic: Axilla Node Tender (L), Axilla Node Tender (R), Inguinal Node Tender (L), Inguinal Node Tender (R) Results Lab Laboratory Tests 07/21/16 10:08: White Blood Count 10.5, Red Blood Count 4.23L, Hemoglobin 11.6L, Hematocrit 34L , Mean Corpuscular Volume 81, Mean Corpuscular Hemoglobin 27, Mean Corpuscular Hemoglobin Concent 34, Red Cell Distribution Width 13.6, Platelet Count 91L, Mean Platelet Volume 12.6H, Neutrophils (%) (Auto) 76H, Lymphocytes (%) (Auto) 13, Monocytes (%) (Auto) 9, Eosinophils (%) (Auto) 1, Basophils (%) (Auto) 1, Neutrophils # (Auto) 8.0H, Lymphocytes # (Auto) 1.4, Monocytes # (Auto) 1.0, Eosinophils # (Auto) 0.1, Basophils # (Auto) 0.1, Sodium Level 133L, Potassium Level 4.6, Chloride Level 99, Carbon Dioxide Level 27, Anion Gap 7, Blood Urea Nitrogen 16, Creatinine 0.96, Estimat Glomerular Filtration Rate > 60, BUN/ Creatinine Ratio 17, Glucose Level 99, Calcium Level 7.8L, Total Bilirubin 1.8H , Aspartate Amino Transf (AST/SGOT) 26, Alanine Aminotransferase (ALT/SGPT) 27, Alkaline Phosphatase 225H, Total Protein 6.0L, Albumin 2.5L Microbiology 07/15/16 Blood Culture - Final, Complete No growth 07/15/16 Virus Culture - Preliminary, Resulted 07/16/16 MRSA Screen - Final, Complete MRSA not isolated Assessment/Plan Assessment/Plan Assess & Plan/Chief Complaint 1. Right lower lobe infiltrate/early pneumonia --Status post IV antibiotics/ceftriaxone. 2. 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 a. Bone marrow aspiration and biopsy done today and results are pending. b. Lumbar puncture done in the emergency room. CSF cytology is pending; CSF cell count showing only 1 WBC; CSF chemistries unremarkable. c. Discharge to home today. Outpatient visit with the [facility] lymphoma specialist scheduled for tomorrow at [facility] with urgent chemotherapy to follow at [facility]. d. bone marrow transplant with high dose chemotherapy to follow and [facility]. e. Allopurinol 600mg in divided doses to be continued as outpatient in anticipation of urgent chemotherapy treatment. 3. History of [place] Spotted fever--receiving IV doxycycline; patient has a positive IgG titer but IgM titer is negative indicating his infection is remote. 4. History of intermittent generalized maculopapular rash-related to patient' s AITL. 5. Elevated LDH, beta 2 microglobulin, positive JOANNE, polyclonal gammopathy. All related to his T-cell lymphoma, AITL. Clinical Quality Measures DVT/VTE Risk/Contraindication: Risk Factor Score Per Nursin RFS Level Per Nursing on Admit: 1=Low/No VTE PPX KYLE SUAREZ MD Jul 21, 2016 13:12
--- NOTE | 2016-07-21 13:25 | Procedure Note ---
Procedure Note Vital Signs Vital Signs Date Time Temp Pulse Resp B/P (MAP) Pulse Ox O2 Delivery O2 Flow Rate FiO2 07/21/16 12:36 0.00 07/21/16 12:00 98.6 99 24 129/71 94 Room Air Date of procedure: 07/20/16 PROCEDURE: Bone marrow aspirate and biopsy INDICATIONS: Staging evaluation for angioimmunoblastic T-cell lymphoma The procedure, indications and complications were explained to the patient and understanding was voiced. An informed consent was then obtained and placed on the chart. Patient was placed in the lateral decubitus position and the right posterior superior iliac spine area was prepped and draped. Local anesthesia was administered using 2% Xylocaine. A sternal aspirate needle was passed in and an aspirate was obtained. The sternal aspirate needle was removed and a Jamshidi needle was passed in and a biopsy was obtained without complications. The patient tolerated the procedure well. Adequate hemostasis was obtained and the specimen was sent to pathology for appropriate testing, including cytogenetics and flow cytometry if indicated. A follow up appointment was scheduled to review the results. KYLE SUAREZ MD Jul 21, 2016 13:25
--- NOTE | 2016-07-22 09:59 | OPERATIVE REPORT ---
PROCEDURE PHYSICIAN: MARIELY HENSLEY DATE OF PROCEDURE: 07/21/2016 PREOPERATIVE DIAGNOSIS: AITL POSTOPERATIVE DIAGNOSIS: AITL PROCEDURE: Power port placement using ultrasound guidance right internal jugular vein. SURGEON: Dandre. ANESTHESIA: General. ESTIMATED BLOOD LOSS: Minimal. COMPLICATIONS: None. INDICATIONS: The patient is a 51-year-old male with AITL. He is to undergo chemotherapy treatment and it has been requested that a port be placed. The risk and benefits of the procedure were discussed with the patient, who understands and wishes to proceed. Consent was signed on the chart. PROCEDURE: The patient was taken to the operating suite. He was prepped and draped in sterile fashion. A surgical pause was performed. Using ultrasound, the right internal jugular vein was located. Local anesthetic was infiltrated into the area. Using a micro- access needle the right internal jugular vein was accessed. Dark nonpulsatile blood was withdrawn. The syringe was removed and the micro- access wire was inserted. Fluoroscopy assured proper placement. The dilator sheath was then advanced over the micro- access wire and the wire was removed. The normal guidewire was inserted and the dilator sheath was removed. The wire was secured. Local anesthetic was infiltrated from the neck down to the right chest for a pocket to be created for the port. 15 blade scalpel was used to make an incision over the right chest. Cautery was used to dissect down to the pectoral fascia. A pocket was then created with cautery and blunt dissection. Once created, the dilator sheath was then advanced over the guidewire with fluoroscopy demonstrating the motion. The wire and the dilator were removed. The Groshong catheter was then inserted through the sheath and the sheath was removed. The Groshong wire was then removed. The catheter was tunneled to the pocket on the right chest. This was cut to length and attached to the port and inserted into the pocket. The port was accessed. It withdrew blood without any difficulty and flushed without difficulty, first with saline and then with heparin. The subcutaneous tissues were then reapproximated using 3-0 Vicryl. The skin was then washed and dried. Dermabond was placed over the incision and also at the neck insertion point. The Dermabond was then and dried and sterile bandage was applied. The patient tolerated procedure well without any complications. He was taken to recovery room in stable condition. Chest x-ray is pending. Job ID: [id number] Dictated Date: 07/21/2016 12:07:22 Administrative Aide Date: 07/22/2016 09:51:46 / clarisa
--- NOTE | 2016-07-22 13:55 | Anesthesia-General Post-Op ---
General Patient Condition Mental Status/LOC: Same as Preop Cardiovascular: Satisfactory Nausea/Vomiting: Absent Respiratory: Satisfactory Pain: Controlled Complications: Absent Post Op Complications Complications None Follow Up Care/Instructions Patient Instructions None needed. Anesthesia/Patient Condition Patient Condition Patient is doing well, no complaints, stable vital signs, no apparent adverse anesthesia problems. No complications reported per nursing. D/C [place] per [facility] [place]: Yes NUNU HODGE CRNA Jul 22, 2016 13:55
== END 2016-07-21 15:45 | disposition home or self-care (01) | DRG 823 ==
LOC: EDUNIT# 08:54 → ER 08:59 → 4TH 12:53
PROVIDERS: ADMIT Family Medicine; ATTEND Family Medicine
PROC: 009U3ZZ Drainage of Spinal Canal, Percutaneous Approach (ICD-10-PCS; 2016-07-15)
PROC: 07B50ZX Excision of Right Axillary Lymphatic, Open Approach, Diagnostic (ICD-10-PCS; 2016-07-16)
PROC: 07B10ZX Excision of Right Neck Lymphatic, Open Approach, Diagnostic (ICD-10-PCS; principal; 2016-07-16 13:18)
PROC: 0JH60XZ Insertion of Tunneled Vascular Access Device into Chest Subcutaneous Tissue and Fascia, Open Approach (ICD-10-PCS; 2016-07-21)
PROC: 02HV33Z Insertion of Infusion Device into Superior Vena Cava, Percutaneous Approach (ICD-10-PCS; 2016-07-21)
PROC: 07DR3ZX Extraction of Iliac Bone Marrow, Percutaneous Approach, Diagnostic (ICD-10-PCS; 2016-07-21)
DX: C86.5 Angioimmunoblastic T-cell lymphoma (principal); J18.9 Pneumonia, unspecified organism; A77.0 Spotted fever due to Rickettsia rickettsii; R59.1 Generalized enlarged lymph nodes; R51 Headache; Z87.891 Personal history of nicotine dependence; J90 Pleural effusion, not elsewhere classified; J98.11 Atelectasis
CPT/HCPCS: 36415; 70450; 71010; 71020; 71260; 80053; 82247; 82248; 82945; 82977; 83605; 83615; 83880; 84157; 84550; 85007; 85025; 85027; 85045; 87040; 87070; 87081; 87205; 87252; 88112; 88184; 88185; 88305; 88341; 88342; 88365; 89051; 94640; 94664; 94760; 96361; 96374; 96375

== ENCOUNTER → 2016-07-15 | Outpatient (CLI) | payer SELFPAY ==
[~2016-07-15] MED LIST changes: -CATHETER FLUSH 10 ML SYR IV PRN; -IOHEXOL 350 MG/ML 100 ML (OMNIPAQUE 350) VIAL IV ONE; -NS 100 ML (IVPB) BAG IV ONE
== END ==
LOC: PREOP 06:26
PROVIDERS: ATTEND Surgery
DX: Z01.818 Encounter for other preprocedural examination (principal); R59.0 Localized enlarged lymph nodes